=== PATIENT | male | born 1950 | race Caucasian/White ===

== ENCOUNTER 2019-04-19 06:40 | Inpatient (IN) ==
[2019-04-19] MEDS ORDERED: 0.9 % Sodium Chloride 1,000 ML IVC ONE ×2 (07:24→08:56)
[2019-04-19 07:44] LABS: Basophils % 0.2 %; Eosinophils # 0.1 K/mcL (0.0-0.6); Eosinophils % 0.6 %; Hematocrit 30.8 % (37.5-50.1); Hemoglobin 9.4 g/dL (12.9-16.9); Immature Granulocytes % 2.2 % (0-4); Lymphocytes # 1.5 K/mcL (0.6-4.6); Lymphocytes % 11.8 %; Mean Corpuscular HGB Conc 30.5 g/dL (31.6-35.5); Mean Corpuscular Hemoglobin 27.2 pg (28.0-33.3); Mean Platelet Volume 9.1 fL (9.4-12.4); Monocytes # 1.1 K/mcL (0.0-1.3); Monocytes % 8.7 %; Neutrophils # 9.5 K/mcL (1.6-8.9); Nucleated Red Blood Cells 0.2 /100 WBC (0); Platelet Count 476 K/mcL (140-400); Red Blood Count 3.46 M/mcL (4.19-5.50); Red Cell Distribution Width 15.6 % (11.5-14.5); Segmented Neutrophils % 76.5 %; White Blood Count 12.5 K/mcL (4.3-11.1)
[2019-04-19 07:55] LABS: INR 1.7; Prothrombin Time 19.8 Seconds (9.4-12.1)
[2019-04-19 07:58] LABS: Activated Partial Thrombo Time 41.1 Seconds (26.0-36.0)
[2019-04-19 08:07] LABS: Alanine Aminotransferase 10 Units/L (7-52); Albumin 2.5 g/dL (3.5-5.7); Albumin/Globulin Ratio 0.7 (1.1-2.2); Alkaline Phosphatase 80 Units/L (34-104); Aspartate Amino Transferase 10 Units/L (13-39); BUN/Creatinine Ratio 37 (6-26); Bilirubin,Total 0.3 mg/dL (0.3-1.0); Blood Urea Nitrogen 19 mg/dL (8-23); Calcium 8.3 mg/dL (8.6-10.3); Carbon Dioxide 27 mEq/L (23-29); Chloride 105 mEq/L (98-107); Globulin 3.4 g/dL (2.4-3.5); Glucose 115 mg/dL (70-105); Lipase 9 Units/L (11-82); Magnesium 1.8 mg/dL (1.6-2.6); Osmolality,Calculated 289 (280-300); Sodium 138 mEq/L (136-145); Total Protein 5.9 g/dL (6.4-8.9); Troponin I < 0.03 ng/mL (< 0.04); eGFR For African Americans > 60 (> 60); eGFR For Non-African Americans > 60 (> 60)
[2019-04-19] MEDS ORDERED: levoFLOXacin 750 MG/150 ML 750 MG/150 ML BAG IVPB ONE (08:57)
[2019-04-19] MEDS ORDERED: Ondansetron 4 MG/2 ML VIAL IVP PRN (10:38)
[2019-04-19] MEDS ORDERED: Naloxone 0.4 MG/ML INJ IVP PRN ×2 (10:38→11:59)
[2019-04-19] MEDS: Ringers Solution, Lactated 1,000 ML IVC SCH ×2 (11:17→16:23)
[2019-04-19] MEDS ORDERED: Pantoprazole 40 MG in 0.9 % Sodium Chloride Mini Bag 100 ML IVC SCH (11:30)
[2019-04-19] MEDS: Piperacillin/Tazobactam 3.375 GM in 0.9 % Sodium Chloride Mini Bag 100 ML IVPB SCH ×2 (11:45→19:55)
[2019-04-19 12:03] LABS: VBG HCO3 26 mEq/L (21-27); VBG PCO2 58 mmHg (41-51); VBG PH 7.25 pH Units (7.32-7.42); VBG PO2 54 mmHg (25-50)
[2019-04-19] MEDS ORDERED: *HR* Dextrose 50 % in Water (Syg) 50 ML SYRINGE IVP PRN (12:03)
[2019-04-19] MEDS ORDERED: D5% in Water 1,000 ML IVC PRN (12:03)
[2019-04-19] MEDS ORDERED: Dextrose Gel 15 GM/37.5 ML TUBE PO PRN ×2 (12:03)
[2019-04-19] MEDS ORDERED: Potassium Phosphate 44 MEQ in 0.9 % Sodium Chloride 250 ML IVPB PRN (12:08)
[2019-04-19] MEDS ORDERED: *HR* FentaNYL (PF) 100 MCG/2 ML VIAL IVP ONE ×3 (13:30→17:10)
[2019-04-19] MEDS ORDERED: Octreotide 50 MCG/ML INJ IVP ONE (13:39)
[2019-04-19] MEDS ORDERED: 0.9 % Sodium Chloride 500 ML ONE (13:57)
[2019-04-19 14:22] LABS: Hematocrit 20.3 % (37.5-50.1); Hemoglobin 6.2 g/dL (12.9-16.9)
[2019-04-19] MEDS: Octreotide 400 MCG in 0.9 % Sodium Chloride 100 ML IVC SCH (14:28)
[2019-04-19] MEDS: Octreotide 50 MCG/ML INJ IVP ONE ×2 (14:34→14:43)
[2019-04-19 14:37] LABS: Bilirubin,Urine Negative (Negative); Blood,Urine Negative (Negative); Clarity,Urine Cloudy (Clear); Color,Urine Yellow (Yellow); Glucose,Urine (UA) Normal (Normal); Ketones,Urine Trace mg/dL (Negative); Leukocyte Esterase,Urine Moderate (Negative); Nitrite,Urine Negative (Negative); Protein,Urine 30 mg/dL (Neg-Trace); Specific Gravity,Urine 1.026 (1.010-1.025); Urobilinogen,Urine Normal (Normal)
[2019-04-19 14:38] LABS: Bacteria,Urine None Seen per hpf (None-Few); Squamous Epithelial Cell,Urine Many per lpf (None-Few); WBC,Urine 30-50 per hpf (0-3)
[2019-04-19 15:02] LABS: Yeast,Urine Many per hpf (None Seen)
[2019-04-19 15:03] LABS: Calcium Oxalate Crystals,Urine Present; Hyaline Casts,Urine Many per lpf (None-Few); Transitional Epi Cells,Urine Few per hpf (None-Few)
[2019-04-19 15:04] LABS: RBC,Urine 0-3 per hpf (0-3)
[2019-04-19] MEDS ORDERED: Isovue-370 500 ML BOTTLE IVP ONE (15:12)
[2019-04-19] MEDS ORDERED: Calcium Gluconate 1gm/50mL 1 GM/50 ML BAG IVPB ONE (15:23)
[2019-04-19] MEDS ORDERED: Furosemide 20 MG/2 ML VIAL IVP ONE (15:38)
[2019-04-19] MEDS: Pantoprazole 40 MG in 0.9 % Sodium Chloride Mini Bag 100 ML IVC SCH ×2 (16:57→19:55)
[2019-04-19] MEDS ORDERED: *HR* Midazolam HCl 5 MG/5 ML VIAL IVP ONE ×3 (16:59→17:05)
[2019-04-19] MEDS ORDERED: Simethicone 40 MG/0.6 ML MLS IR ONE (16:59)
[2019-04-19] MEDS ORDERED: Tetracaine/Benzocaine/Butamben 1 SPRAY AEROSOL MM ONE (17:54)
[2019-04-19] MEDS: Insulin LISPRO 300 UNITS/3 ML VIAL SQ SCH ×2 (18:41→23:25)
[2019-04-19 21:38] LABS: Hematocrit 31.2 % (37.5-50.1); Hemoglobin 9.8 g/dL (12.9-16.9)
[2019-04-19] MEDS: Sucralfate 1 GM TABLET PO SCH (21:47)
[2019-04-20] MEDS: Pantoprazole 40 MG in 0.9 % Sodium Chloride Mini Bag 100 ML IVC SCH ×5 (00:23→21:13)
[2019-04-20] MEDS: Octreotide 400 MCG in 0.9 % Sodium Chloride 100 ML IVC SCH ×4 (00:24→22:15)
[2019-04-20] MEDS ORDERED: Furosemide 20 MG/2 ML VIAL IVP ONE ×3 (02:11→18:50)
[2019-04-20 03:51] LABS: VBG Ionized Calcium 1.15 mmol/L (1.15-1.35)
[2019-04-20 03:54] LABS: Basophils # 0.1 K/mcL (0.0-0.2); Basophils % 0.6 %; Eosinophils # 0.1 K/mcL (0.0-0.6); Eosinophils % 0.5 %; Hematocrit 30.3 % (37.5-50.1); Hemoglobin 9.4 g/dL (12.9-16.9); Immature Granulocytes % 2.7 % (0-4); Lymphocytes # 1.7 K/mcL (0.6-4.6); Lymphocytes % 14.6 %; Mean Corpuscular Hemoglobin 28.3 pg (28.0-33.3); Mean Corpuscular Volume 91.3 fL (83.0-100.0); Mean Platelet Volume 8.8 fL (9.4-12.4); Monocytes # 1.5 K/mcL (0.0-1.3); Monocytes % 12.4 %; Neutrophils # 8.2 K/mcL (1.6-8.9); Nucleated Red Blood Cells 0.4 /100 WBC (0); Platelet Count 368 K/mcL (140-400); Red Blood Count 3.32 M/mcL (4.19-5.50); Red Cell Distribution Width 15.5 % (11.5-14.5); Segmented Neutrophils % 69.2 %; White Blood Count 11.9 K/mcL (4.3-11.1)
[2019-04-20 03:58] LABS: BUN/Creatinine Ratio 36 (6-26); Blood Urea Nitrogen 20 mg/dL (8-23); Calcium 7.3 mg/dL (8.6-10.3); Carbon Dioxide 28 mEq/L (23-29); Chloride 108 mEq/L (98-107); Glucose 113 mg/dL (70-105); Osmolality,Calculated 295 (280-300); Sodium 141 mEq/L (136-145); eGFR For African Americans > 60 (> 60); eGFR For Non-African Americans > 60 (> 60)
[2019-04-20] MEDS: Piperacillin/Tazobactam 3.375 GM in 0.9 % Sodium Chloride Mini Bag 100 ML IVPB SCH ×3 (04:27→19:18)
[2019-04-20 04:51] LABS: Phosphorous 3.7 mg/dL (2.7-4.5)
[2019-04-20] MEDS: Insulin LISPRO 300 UNITS/3 ML VIAL SQ SCH ×4 (05:32→23:47)
[2019-04-20] MEDS: Sucralfate 1 GM TABLET PO SCH ×4 (06:53→21:15)
[2019-04-20] MEDS: *HR* OxyCODONE Immed Rel 5 MG TABLET PO PRN ×2 (09:29→19:32)
[2019-04-20 10:08] LABS: Hematocrit 28.7 % (37.5-50.1)
[2019-04-20] MEDS ORDERED: Ipratropium/Albuterol Neb 3 ML IH ONE (12:57)
[2019-04-20] MEDS ORDERED: Albuterol 2.5 MG/3 ML NEBULIZER IH PRN (12:57)
[2019-04-20] MEDS: Perflutren Lipid Microsphere 1.3 ML in 0.9 % Sodium Chloride 8.7 ML IVP ONE ×2 (15:25→15:27)
[2019-04-21] MEDS: Insulin LISPRO 300 UNITS/3 ML VIAL SQ SCH ×5 (00:13→22:48)
[2019-04-21] MEDS: Pantoprazole 40 MG in 0.9 % Sodium Chloride Mini Bag 100 ML IVC SCH ×2 (01:24→06:19)
[2019-04-21 03:40] LABS: Basophils # 0.1 K/mcL (0.0-0.2); Basophils % 0.5 %; Eosinophils # 0.7 K/mcL (0.0-0.6); Eosinophils % 5.2 %; Hemoglobin 8.1 g/dL (12.9-16.9); Immature Granulocytes % 1.1 % (0-4); Lymphocytes # 2.2 K/mcL (0.6-4.6); Lymphocytes % 16.7 %; Mean Corpuscular HGB Conc 31.2 g/dL (31.6-35.5); Mean Corpuscular Volume 93.2 fL (83.0-100.0); Mean Platelet Volume 8.6 fL (9.4-12.4); Monocytes # 1.5 K/mcL (0.0-1.3); Monocytes % 11.6 %; Neutrophils # 8.6 K/mcL (1.6-8.9); Nucleated Red Blood Cells 0.2 /100 WBC (0); Platelet Count 355 K/mcL (140-400); Red Blood Count 2.79 M/mcL (4.19-5.50); Segmented Neutrophils % 64.9 %; White Blood Count 13.3 K/mcL (4.3-11.1)
[2019-04-21 03:49] LABS: VBG Ionized Calcium 1.08 mmol/L (1.15-1.35)
[2019-04-21 03:55] LABS: BUN/Creatinine Ratio 25 (6-26); Blood Urea Nitrogen 15 mg/dL (8-23); Calcium 7.4 mg/dL (8.6-10.3); Carbon Dioxide 35 mEq/L (23-29); Chloride 103 mEq/L (98-107); Glucose 70 mg/dL (70-105); Osmolality,Calculated 289 (280-300); Phosphorous 2.6 mg/dL (2.7-4.5); Potassium 3.6 mEq/L (3.5-5.1); Sodium 140 mEq/L (136-145); eGFR For African Americans > 60 (> 60); eGFR For Non-African Americans > 60 (> 60)
[2019-04-21] MEDS: Piperacillin/Tazobactam 3.375 GM in 0.9 % Sodium Chloride Mini Bag 100 ML IVPB SCH ×3 (04:03→19:55)
[2019-04-21] MEDS: Calcium Gluconate 1gm/50mL 1 GM/50 ML BAG IVPB PRN ×2 (04:44→18:22)
[2019-04-21 05:13] LABS: Magnesium 1.6 mg/dL (1.6-2.6)
[2019-04-21] MEDS: Octreotide 400 MCG in 0.9 % Sodium Chloride 100 ML IVC SCH ×2 (06:18→15:24)
[2019-04-21] MEDS: Sucralfate 1 GM TABLET PO SCH ×4 (09:26→19:56)
[2019-04-21] MEDS: Furosemide 20 MG/2 ML VIAL IVP SCH ×2 (09:26→19:55)
[2019-04-21 11:03] LABS: Calcium 7.7 mg/dL (8.6-10.3); Potassium 4.2 mEq/L (3.5-5.1)
[2019-04-21 12:15] LABS: ABG Base Excess 16 mEq/L (-2 to 3); ABG HCO3 44 mEq/L (21-27); ABG Oxygen Saturation 95 % (95-98); ABG PCO2 77 mmHg (35-45); ABG PH 7.37 pH Units (7.32-7.45); ABG PO2 85 mmHg (85-104); ABG TCO2 47 mEq/L (20-26)
[2019-04-21 12:58] LABS: Basophils % 0.3 %; Eosinophils # 0.4 K/mcL (0.0-0.6); Eosinophils % 3.6 %; Hematocrit 28.9 % (37.5-50.1); Hemoglobin 8.8 g/dL (12.9-16.9); Lymphocytes # 1.4 K/mcL (0.6-4.6); Lymphocytes % 12.3 %; Mean Corpuscular HGB Conc 30.4 g/dL (31.6-35.5); Mean Corpuscular Hemoglobin 28.7 pg (28.0-33.3); Mean Corpuscular Volume 94.1 fL (83.0-100.0); Mean Platelet Volume 8.4 fL (9.4-12.4); Monocytes # 1.1 K/mcL (0.0-1.3); Monocytes % 9.1 %; Neutrophils # 8.5 K/mcL (1.6-8.9); Nucleated Red Blood Cells 0.3 /100 WBC (0); Platelet Count 413 K/mcL (140-400); Red Blood Count 3.07 M/mcL (4.19-5.50); Red Cell Distribution Width 16.1 % (11.5-14.5); Segmented Neutrophils % 73.7 %; White Blood Count 11.5 K/mcL (4.3-11.1)
[2019-04-21 12:59] LABS: VBG Ionized Calcium 1.07 mmol/L (1.15-1.35)
[2019-04-21 13:10] LABS: BUN/Creatinine Ratio 23 (6-26); Blood Urea Nitrogen 12 mg/dL (8-23); Calcium 7.7 mg/dL (8.6-10.3); Carbon Dioxide 37 mEq/L (23-29); Chloride 100 mEq/L (98-107); Glucose 127 mg/dL (70-105); Osmolality,Calculated 291 (280-300); Potassium 4.1 mEq/L (3.5-5.1); Sodium 140 mEq/L (136-145); eGFR For African Americans > 60 (> 60); eGFR For Non-African Americans > 60 (> 60)
[2019-04-21 15:18] LABS: ABG Base Excess 17 mEq/L (-2 to 3); ABG HCO3 44 mEq/L (21-27); ABG Oxygen Saturation 98 % (95-98); ABG PCO2 72 mmHg (35-45); ABG PH 7.39 pH Units (7.32-7.45); ABG PO2 104 mmHg (85-104); ABG TCO2 46 mEq/L (20-26); Blood Gas Modality ST; Blood Gas Pressure Support 12 cm H2O
[2019-04-21] MEDS: Pantoprazole 40 MG VIAL IVP SCH (17:48)
[2019-04-21 23:27] LABS: VBG Ionized Calcium 1.11 mmol/L (1.15-1.35)
[2019-04-21 23:33] LABS: BUN/Creatinine Ratio 18 (6-26); Blood Urea Nitrogen 10 mg/dL (8-23); Calcium 7.9 mg/dL (8.6-10.3); Carbon Dioxide 37 mEq/L (23-29); Chloride 98 mEq/L (98-107); Glucose 96 mg/dL (70-105); Magnesium 1.9 mg/dL (1.6-2.6); Osmolality,Calculated 289 (280-300); Phosphorous 2.9 mg/dL (2.7-4.5); Potassium 4.3 mEq/L (3.5-5.1); Sodium 140 mEq/L (136-145); eGFR For African Americans > 60 (> 60); eGFR For Non-African Americans > 60 (> 60)
[2019-04-22] MEDS: Octreotide 400 MCG in 0.9 % Sodium Chloride 100 ML IVC SCH ×2 (00:09→09:09)
[2019-04-22 03:24] LABS: Basophils # 0.1 K/mcL (0.0-0.2); Basophils % 0.4 %; Eosinophils # 0.3 K/mcL (0.0-0.6); Eosinophils % 2.3 %; Hematocrit 26.5 % (37.5-50.1); Hemoglobin 8.2 g/dL (12.9-16.9); Immature Granulocytes % 0.7 % (0-4); Lymphocytes # 1.8 K/mcL (0.6-4.6); Lymphocytes % 13.1 %; Mean Corpuscular HGB Conc 30.9 g/dL (31.6-35.5); Mean Corpuscular Hemoglobin 29.3 pg (28.0-33.3); Mean Corpuscular Volume 94.6 fL (83.0-100.0); Mean Platelet Volume 8.8 fL (9.4-12.4); Monocytes # 1.2 K/mcL (0.0-1.3); Neutrophils # 10.1 K/mcL (1.6-8.9); Platelet Count 415 K/mcL (140-400); Red Cell Distribution Width 16.1 % (11.5-14.5); Segmented Neutrophils % 74.5 %; White Blood Count 13.6 K/mcL (4.3-11.1)
[2019-04-22 03:38] LABS: Alanine Aminotransferase 18 Units/L (7-52); Albumin 2.5 g/dL (3.5-5.7); Albumin/Globulin Ratio 0.8 (1.1-2.2); Alkaline Phosphatase 66 Units/L (34-104); Aspartate Amino Transferase 47 Units/L (13-39); BUN/Creatinine Ratio 17 (6-26); Bilirubin,Direct 0.2 mg/dL (0.0-0.2); Bilirubin,Indirect 0.1 mg/dL (0.0-1.0); Bilirubin,Total 0.3 mg/dL (0.3-1.0); Blood Urea Nitrogen 10 mg/dL (8-23); Calcium 7.9 mg/dL (8.6-10.3); Carbon Dioxide 37 mEq/L (23-29); Chloride 97 mEq/L (98-107); Globulin 3.1 g/dL (2.4-3.5); Glucose 96 mg/dL (70-105); Magnesium 2.6 mg/dL (1.6-2.6); Osmolality,Calculated 291 (280-300); Phosphorous 4.2 mg/dL (2.7-4.5); Sodium 141 mEq/L (136-145); Total Protein 5.6 g/dL (6.4-8.9); eGFR For African Americans > 60 (> 60); eGFR For Non-African Americans > 60 (> 60)
[2019-04-22 03:40] LABS: INR 2.9; Prothrombin Time 32.9 Seconds (9.4-12.1)
[2019-04-22] MEDS: Piperacillin/Tazobactam 3.375 GM in 0.9 % Sodium Chloride Mini Bag 100 ML IVPB SCH ×3 (04:06→20:17)
[2019-04-22 04:12] LABS: ABG Base Excess 12 mEq/L (-2 to 3); ABG HCO3 39 mEq/L (21-27); ABG Oxygen Saturation 89 % (95-98); ABG PCO2 67 mmHg (35-45); ABG PH 7.38 pH Units (7.32-7.45); ABG PO2 61 mmHg (85-104); ABG TCO2 41 mEq/L (20-26)
[2019-04-22] MEDS: Insulin LISPRO 300 UNITS/3 ML VIAL SQ SCH ×2 (05:26→20:18)
[2019-04-22] MEDS: Pantoprazole 40 MG VIAL IVP SCH ×2 (05:33→17:29)
[2019-04-22] MEDS: Furosemide 20 MG/2 ML VIAL IVP SCH ×2 (08:25→20:18)
[2019-04-22] MEDS: Sucralfate 1 GM TABLET PO SCH ×4 (08:25→20:18)
[2019-04-22 08:49] LABS: Prothrombin Time 34.1 Seconds (9.4-12.1)
[2019-04-22] MEDS ORDERED: diazePAM 2 MG TABLET PO PRN ×2 (11:35→18:45)
[2019-04-22] MEDS ORDERED: Venlafaxine XR (24 HR) 150 MG CAP.ER.24H PO SCH (11:45)
[2019-04-22] MEDS ORDERED: 0.9 % Sodium Chloride 250 ML ONE ×2 (12:26→17:19)
[2019-04-22] MEDS ORDERED: Insulin LISPRO 300 UNITS/3 ML VIAL SQ SCH (16:30)
[2019-04-22] MEDS ORDERED: *HR* OxyCODONE Immed Rel 5 MG TABLET PO PRN (18:45)
[2019-04-22] MEDS ORDERED: Naloxone 0.4 MG/ML INJ IVP PRN (18:45)
[2019-04-22] MEDS ORDERED: Ondansetron 4 MG/2 ML VIAL IVP PRN (18:45)
[2019-04-22] MEDS ORDERED: D5% in Water 1,000 ML IVC PRN (18:45)
[2019-04-22] MEDS ORDERED: Calcium Gluconate 1gm/50mL 1 GM/50 ML BAG IVPB PRN (18:45)
[2019-04-22] MEDS ORDERED: Albuterol 2.5 MG/3 ML NEBULIZER IH PRN (18:45)
[2019-04-22] MEDS ORDERED: Potassium Phosphate 44 MEQ in 0.9 % Sodium Chloride 250 ML IVPB PRN (18:45)
[2019-04-22] MEDS ORDERED: Dextrose Gel 15 GM/37.5 ML TUBE PO PRN ×2 (18:45)
[2019-04-22] MEDS ORDERED: *HR* Dextrose 50 % in Water (Syg) 50 ML SYRINGE IVP PRN (18:45)
[2019-04-22 20:37] LABS: Hematocrit 24.9 % (37.5-50.1); Hemoglobin 7.5 g/dL (12.9-16.9)
[2019-04-22 21:04] LABS: Albumin 2.8 g/dL (3.5-5.7); Albumin/Globulin Ratio 0.9 (1.1-2.2); Bilirubin,Direct 0.1 mg/dL (0.0-0.2); Bilirubin,Indirect 0.3 mg/dL (0.0-1.0); Bilirubin,Total 0.4 mg/dL (0.3-1.0); Globulin 3.2 g/dL (2.4-3.5)
[2019-04-22 21:51] LABS: INR 1.3; Prothrombin Time 14.4 Seconds (9.4-12.1)
[2019-04-22 21:53] LABS: Activated Partial Thrombo Time 40.1 Seconds (26.0-36.0)
[2019-04-23] MEDS: Piperacillin/Tazobactam 3.375 GM in 0.9 % Sodium Chloride Mini Bag 100 ML IVPB SCH ×3 (03:58→20:13)
[2019-04-23] MEDS: Pantoprazole 40 MG VIAL IVP SCH ×2 (04:43→19:00)
[2019-04-23 04:44] LABS: ABG Base Excess 20 mEq/L (-2 to 3); ABG HCO3 48 mEq/L (21-27); ABG Oxygen Saturation 93 % (95-98); ABG PCO2 81 mmHg (35-45); ABG PH 7.38 pH Units (7.32-7.45); ABG PO2 72 mmHg (85-104); ABG TCO2 > 50 mEq/L (20-26)
[2019-04-23] MEDS ORDERED: Benzonatate 100 MG CAPSULE PO PRN (04:55)
[2019-04-23 05:15] LABS: Basophils % 0.4 %; Eosinophils # 0.3 K/mcL (0.0-0.6); Eosinophils % 2.8 %; Hematocrit 24.7 % (37.5-50.1); Hemoglobin 7.6 g/dL (12.9-16.9); Immature Granulocytes % 0.6 % (0-4); Lymphocytes # 1.1 K/mcL (0.6-4.6); Lymphocytes % 10.6 %; Mean Corpuscular HGB Conc 30.8 g/dL (31.6-35.5); Mean Corpuscular Hemoglobin 29.3 pg (28.0-33.3); Mean Corpuscular Volume 95.4 fL (83.0-100.0); Mean Platelet Volume 8.8 fL (9.4-12.4); Monocytes % 9.1 %; Neutrophils # 8.1 K/mcL (1.6-8.9); Platelet Count 453 K/mcL (140-400); Red Blood Count 2.59 M/mcL (4.19-5.50); Red Cell Distribution Width 15.9 % (11.5-14.5); Segmented Neutrophils % 76.5 %; White Blood Count 10.6 K/mcL (4.3-11.1)
[2019-04-23 05:32] LABS: INR 1.1; Prothrombin Time 12.5 Seconds (9.4-12.1)
[2019-04-23 05:35] LABS: Activated Partial Thrombo Time 36.5 Seconds (26.0-36.0)
[2019-04-23 05:41] LABS: Phosphorous 2.2 mg/dL (2.7-4.5)
[2019-04-23 05:44] LABS: Alanine Aminotransferase 17 Units/L (7-52); Albumin 2.9 g/dL (3.5-5.7); Albumin/Globulin Ratio 0.9 (1.1-2.2); Alkaline Phosphatase 67 Units/L (34-104); Aspartate Amino Transferase 27 Units/L (13-39); BUN/Creatinine Ratio 11 (6-26); Bilirubin,Total 0.4 mg/dL (0.3-1.0); Blood Urea Nitrogen 7 mg/dL (8-23); Calcium 8.1 mg/dL (8.6-10.3); Carbon Dioxide 45 mEq/L (23-29); Chloride 94 mEq/L (98-107); Globulin 3.3 g/dL (2.4-3.5); Glucose 154 mg/dL (70-105); Osmolality,Calculated 293 (280-300); Potassium 3.6 mEq/L (3.5-5.1); Sodium 141 mEq/L (136-145); Total Protein 6.2 g/dL (6.4-8.9); eGFR For African Americans > 60 (> 60); eGFR For Non-African Americans > 60 (> 60)
[2019-04-23] MEDS: Sucralfate 1 GM TABLET PO SCH ×4 (08:00→20:12)
[2019-04-23] MEDS: Furosemide 20 MG/2 ML VIAL IVP SCH ×2 (08:07→20:12)
[2019-04-23] MEDS: Insulin LISPRO 300 UNITS/3 ML VIAL SQ SCH ×4 (08:08→21:30)
[2019-04-23] MEDS: Venlafaxine XR (24 HR) 150 MG CAP.ER.24H PO SCH (09:00)
[2019-04-23 16:13] LABS: ABG Base Excess 24 mEq/L (-2 to 3); ABG HCO3 52 mEq/L (21-27); ABG Oxygen Saturation 100 % (95-98); ABG PCO2 82 mmHg (35-45); ABG PH 7.41 pH Units (7.32-7.45); ABG PO2 179 mmHg (85-104); ABG TCO2 > 50 mEq/L (20-26)
[2019-04-23 19:52] LABS: Hematocrit 26.2 % (37.5-50.1); Hemoglobin 7.8 g/dL (12.9-16.9)
[2019-04-24] MEDS: Insulin LISPRO 300 UNITS/3 ML VIAL SQ SCH ×4 (03:30→23:10)
[2019-04-24] MEDS: Piperacillin/Tazobactam 3.375 GM in 0.9 % Sodium Chloride Mini Bag 100 ML IVPB SCH ×3 (03:37→21:24)
[2019-04-24] MEDS: Pantoprazole 40 MG VIAL IVP SCH (05:13)
[2019-04-24] MEDS ORDERED: calcitrioL 0.25 MCG CAPSULE PO SCH (09:00)
[2019-04-24] MEDS: Cholecalciferol (D-3) 1,000 UNIT (25MCG) TABLET PO SCH (10:11)
[2019-04-24] MEDS: Sucralfate 1 GM TABLET PO SCH ×4 (10:11→21:21)
[2019-04-24] MEDS: Venlafaxine XR (24 HR) 150 MG CAP.ER.24H PO SCH (10:11)
[2019-04-24] MEDS: polyethylene glycoL 3350 17 GM POWD.PACK PO SCH (10:28)
[2019-04-24] MEDS: Sennosides/Docusate Sodium TABLET PO SCH ×2 (10:28→21:21)
[2019-04-24] MEDS: Furosemide 20 MG/2 ML VIAL IVP SCH ×2 (10:28→21:21)
[2019-04-25 01:52] LABS: Basophils # 0.1 K/mcL (0.0-0.2); Basophils % 0.5 %; Eosinophils # 0.3 K/mcL (0.0-0.6); Eosinophils % 2.4 %; Hematocrit 28.5 % (37.5-50.1); Hemoglobin 8.6 g/dL (12.9-16.9); Immature Granulocytes % 0.5 % (0-4); Lymphocytes # 1.5 K/mcL (0.6-4.6); Lymphocytes % 12.1 %; Mean Corpuscular HGB Conc 30.2 g/dL (31.6-35.5); Mean Platelet Volume 8.5 fL (9.4-12.4); Monocytes # 1.4 K/mcL (0.0-1.3); Monocytes % 11.4 %; Neutrophils # 8.9 K/mcL (1.6-8.9); Platelet Count 574 K/mcL (140-400); Red Blood Count 2.97 M/mcL (4.19-5.50); Red Cell Distribution Width 15.8 % (11.5-14.5); Segmented Neutrophils % 73.1 %; White Blood Count 12.1 K/mcL (4.3-11.1)
[2019-04-25 01:57] LABS: VBG HCO3 48 mEq/L (21-27); VBG PCO2 65 mmHg (41-51); VBG PH 7.48 pH Units (7.32-7.42); VBG PO2 120 mmHg (25-50)
[2019-04-25 02:15] LABS: BUN/Creatinine Ratio 8 (6-26); Blood Urea Nitrogen 5 mg/dL (8-23); Calcium 8.6 mg/dL (8.6-10.3); Carbon Dioxide > 45 mEq/L (23-29); Chloride 90 mEq/L (98-107); Glucose 81 mg/dL (70-105); Magnesium 1.9 mg/dL (1.6-2.6); Osmolality,Calculated 296 (280-300); Sodium 145 mEq/L (136-145); eGFR For African Americans > 60 (> 60); eGFR For Non-African Americans > 60 (> 60)
[2019-04-25] MEDS ORDERED: *HR* Metoprolol 5 MG/5 ML VIAL IVP ONE (02:23)
[2019-04-25] MEDS: *HR* Metoprolol 5 MG/5 ML VIAL IVP ONE ×2 (02:29→05:29)
[2019-04-25] MEDS ORDERED: DilTIAZem 50 MG in 0.9 % Sodium Chloride 40 ML IVC SCH (03:00)
[2019-04-25] MEDS ORDERED: Albumin 25% 25gram/100mL 25 GM/100 ML IV.SOLN IVPB ONE (03:56)
[2019-04-25] MEDS ORDERED: 0.9 % Sodium Chloride 1,000 ML ONE (04:16)
[2019-04-25] MEDS: Piperacillin/Tazobactam 3.375 GM in 0.9 % Sodium Chloride Mini Bag 100 ML IVPB SCH ×3 (04:28→20:12)
[2019-04-25] MEDS: Insulin LISPRO 300 UNITS/3 ML VIAL SQ SCH ×3 (06:01→23:10)
[2019-04-25] MEDS: Sennosides/Docusate Sodium TABLET PO SCH ×2 (08:17→20:12)
[2019-04-25] MEDS: Sucralfate 1 GM TABLET PO SCH ×4 (08:17→23:10)
[2019-04-25] MEDS: Cholecalciferol (D-3) 1,000 UNIT (25MCG) TABLET PO SCH (08:17)
[2019-04-25] MEDS: Furosemide 20 MG/2 ML VIAL IVP SCH ×2 (08:18→20:12)
[2019-04-25] MEDS: polyethylene glycoL 3350 17 GM POWD.PACK PO SCH (08:18)
[2019-04-25] MEDS: Venlafaxine XR (24 HR) 150 MG CAP.ER.24H PO SCH (08:19)
[2019-04-25] MEDS ORDERED: Potassium Chloride 40 MEQ, Lidocaine 1% 2 ML in 0.9 % Sodium Chloride 500 ML IVPB ONE (08:56)
[2019-04-25] MEDS: Ipratropium/Albuterol Neb 3 ML IH PRN (09:50)
[2019-04-25] MEDS ORDERED: *HR* Digoxin 0.5 MG/2 ML AMPUL IVP ONE (12:00)
[2019-04-25 15:58] LABS: BUN/Creatinine Ratio 9 (6-26); Blood Urea Nitrogen 7 mg/dL (8-23); Calcium 8.5 mg/dL (8.6-10.3); Carbon Dioxide 44 mEq/L (23-29); Chloride 96 mEq/L (98-107); Glucose 112 mg/dL (70-105); Osmolality,Calculated 299 (280-300); Potassium 4.4 mEq/L (3.5-5.1); Sodium 145 mEq/L (136-145); eGFR For African Americans > 60 (> 60); eGFR For Non-African Americans > 60 (> 60)
[2019-04-25] MEDS: *HR* Digoxin 0.5 MG/2 ML AMPUL IVP SCH (17:47)
[2019-04-25 18:19] LABS: BUN/Creatinine Ratio 9 (6-26); Blood Urea Nitrogen 7 mg/dL (8-23); Calcium 8.7 mg/dL (8.6-10.3); Carbon Dioxide 43 mEq/L (23-29); Chloride 96 mEq/L (98-107); Glucose 86 mg/dL (70-105); Magnesium 1.9 mg/dL (1.6-2.6); Osmolality,Calculated 299 (280-300); Phosphorous 1.7 mg/dL (2.7-4.5); Potassium 4.3 mEq/L (3.5-5.1); Sodium 146 mEq/L (136-145); eGFR For African Americans > 60 (> 60); eGFR For Non-African Americans > 60 (> 60)
[2019-04-25] MEDS ORDERED: Nitroglycerin 0.4 MG TAB.SUBL SL PRN (18:27)
[2019-04-25] MEDS ORDERED: Aspirin 81 MG TAB.CHEW PO ONE (18:27)
[2019-04-26 00:29] LABS: Basophils # 0.1 K/mcL (0.0-0.2); Basophils % 0.5 %; Eosinophils # 0.2 K/mcL (0.0-0.6); Eosinophils % 2.1 %; Hematocrit 31.3 % (37.5-50.1); Hemoglobin 9.2 g/dL (12.9-16.9); Immature Granulocytes % 0.5 % (0-4); Lymphocytes # 1.3 K/mcL (0.6-4.6); Lymphocytes % 13.4 %; Mean Corpuscular HGB Conc 29.4 g/dL (31.6-35.5); Mean Corpuscular Hemoglobin 28.4 pg (28.0-33.3); Mean Corpuscular Volume 96.6 fL (83.0-100.0); Mean Platelet Volume 8.8 fL (9.4-12.4); Monocytes # 1.2 K/mcL (0.0-1.3); Monocytes % 11.9 %; Platelet Count 656 K/mcL (140-400); Red Blood Count 3.24 M/mcL (4.19-5.50); Red Cell Distribution Width 16.1 % (11.5-14.5); Segmented Neutrophils % 71.6 %; White Blood Count 9.7 K/mcL (4.3-11.1)
[2019-04-26] MEDS: *HR* Digoxin 0.5 MG/2 ML AMPUL IVP SCH (00:43)
[2019-04-26 01:26] LABS: BUN/Creatinine Ratio 9 (6-26); Blood Urea Nitrogen 7 mg/dL (8-23); Carbon Dioxide 37 mEq/L (23-29); Chloride 94 mEq/L (98-107); Glucose 82 mg/dL (70-105); Magnesium 2.6 mg/dL (1.6-2.6); Osmolality,Calculated 293 (280-300); Potassium 3.7 mEq/L (3.5-5.1); Sodium 143 mEq/L (136-145); eGFR For African Americans > 60 (> 60); eGFR For Non-African Americans > 60 (> 60)
[2019-04-26 01:40] LABS: Digoxin 2.2 ng/mL (0.8-2.0)
[2019-04-26] MEDS: Piperacillin/Tazobactam 3.375 GM in 0.9 % Sodium Chloride Mini Bag 100 ML IVPB SCH ×3 (03:28→19:59)
[2019-04-26] MEDS: Insulin LISPRO 300 UNITS/3 ML VIAL SQ SCH ×2 (08:06→11:36)
[2019-04-26] MEDS: Sucralfate 1 GM TABLET PO SCH ×4 (08:06→21:45)
[2019-04-26] MEDS: Furosemide 20 MG/2 ML VIAL IVP SCH ×2 (08:07→19:59)
[2019-04-26] MEDS: *HR* Digoxin 0.125 MG TABLET PO SCH (08:07)
[2019-04-26] MEDS: Venlafaxine XR (24 HR) 150 MG CAP.ER.24H PO SCH (08:07)
[2019-04-26] MEDS: polyethylene glycoL 3350 17 GM POWD.PACK PO SCH (08:22)
[2019-04-26] MEDS: Sennosides/Docusate Sodium TABLET PO SCH (08:22)
[2019-04-26] MEDS: Cholecalciferol (D-3) 1,000 UNIT (25MCG) TABLET PO SCH (08:23)
[2019-04-26] MEDS ORDERED: Aminoglycoside Consult 1 EACH MC ONE (09:22)
[2019-04-26] MEDS ORDERED: D5% in Water 1,000 ML IVC PRN (16:25)
[2019-04-26] MEDS ORDERED: Dextrose Gel 15 GM/37.5 ML TUBE PO PRN ×2 (16:25)
[2019-04-26] MEDS ORDERED: *HR* Dextrose 50 % in Water (Syg) 50 ML SYRINGE IVP PRN (16:25)
[2019-04-27] MEDS: Piperacillin/Tazobactam 3.375 GM in 0.9 % Sodium Chloride Mini Bag 100 ML IVPB SCH ×3 (03:16→20:30)
[2019-04-27 03:19] LABS: Basophils # 0.1 K/mcL (0.0-0.2); Basophils % 0.6 %; Eosinophils # 0.4 K/mcL (0.0-0.6); Eosinophils % 2.8 %; Hematocrit 30.6 % (37.5-50.1); Hemoglobin 9.2 g/dL (12.9-16.9); Immature Granulocytes % 0.6 % (0-4); Lymphocytes # 1.9 K/mcL (0.6-4.6); Lymphocytes % 13.1 %; Mean Corpuscular HGB Conc 30.1 g/dL (31.6-35.5); Mean Corpuscular Hemoglobin 28.8 pg (28.0-33.3); Mean Corpuscular Volume 95.6 fL (83.0-100.0); Mean Platelet Volume 8.9 fL (9.4-12.4); Monocytes # 1.8 K/mcL (0.0-1.3); Monocytes % 12.7 %; Platelet Count 625 K/mcL (140-400); Red Cell Distribution Width 16.1 % (11.5-14.5); Segmented Neutrophils % 70.2 %; White Blood Count 14.3 K/mcL (4.3-11.1)
[2019-04-27 03:46] LABS: BUN/Creatinine Ratio 10 (6-26); Blood Urea Nitrogen 9 mg/dL (8-23); Calcium 8.5 mg/dL (8.6-10.3); Carbon Dioxide 40 mEq/L (23-29); Chloride 96 mEq/L (98-107); Glucose 89 mg/dL (70-105); Magnesium 2.1 mg/dL (1.6-2.6); Osmolality,Calculated 294 (280-300); Potassium 4.2 mEq/L (3.5-5.1); Sodium 143 mEq/L (136-145); eGFR For African Americans > 60 (> 60); eGFR For Non-African Americans > 60 (> 60)
[2019-04-27] MEDS: Venlafaxine XR (24 HR) 150 MG CAP.ER.24H PO SCH (08:32)
[2019-04-27] MEDS: polyethylene glycoL 3350 17 GM POWD.PACK PO SCH (08:32)
[2019-04-27] MEDS: Sucralfate 1 GM TABLET PO SCH ×4 (08:32→20:31)
[2019-04-27] MEDS: *HR* Digoxin 0.125 MG TABLET PO SCH ×2 (08:32→18:07)
[2019-04-27] MEDS: Cholecalciferol (D-3) 1,000 UNIT (25MCG) TABLET PO SCH (08:33)
[2019-04-27] MEDS ORDERED: *HR* Metoprolol 5 MG/5 ML VIAL IVP ONE (18:01)
[2019-04-27] MEDS ORDERED: Metoprolol XL (24 HR) Succ 25 MG TAB.ER.24H PO SCH (18:02)
[2019-04-28] MEDS: Piperacillin/Tazobactam 3.375 GM in 0.9 % Sodium Chloride Mini Bag 100 ML IVPB SCH ×3 (04:09→20:06)
[2019-04-28 06:50] LABS: Basophils # 0.1 K/mcL (0.0-0.2); Basophils % 0.9 %; Eosinophils # 0.2 K/mcL (0.0-0.6); Eosinophils % 1.7 %; Hematocrit 26.4 % (37.5-50.1); Hemoglobin 7.9 g/dL (12.9-16.9); Immature Granulocytes % 0.3 % (0-4); Lymphocytes # 1.4 K/mcL (0.6-4.6); Lymphocytes % 15.8 %; Mean Corpuscular HGB Conc 29.9 g/dL (31.6-35.5); Mean Corpuscular Hemoglobin 28.7 pg (28.0-33.3); Mean Platelet Volume 8.8 fL (9.4-12.4); Monocytes # 1.2 K/mcL (0.0-1.3); Monocytes % 13.9 %; Platelet Count 603 K/mcL (140-400); Red Blood Count 2.75 M/mcL (4.19-5.50); Red Cell Distribution Width 16.3 % (11.5-14.5); Segmented Neutrophils % 67.4 %; White Blood Count 8.9 K/mcL (4.3-11.1)
[2019-04-28 06:51] LABS: VBG HCO3 40 mEq/L (21-27); VBG PCO2 61 mmHg (41-51); VBG PH 7.43 pH Units (7.32-7.42); VBG PO2 104 mmHg (25-50)
[2019-04-28 07:15] LABS: BUN/Creatinine Ratio 12 (6-26); Blood Urea Nitrogen 9 mg/dL (8-23); Calcium 8.5 mg/dL (8.6-10.3); Carbon Dioxide 39 mEq/L (23-29); Chloride 97 mEq/L (98-107); Glucose 98 mg/dL (70-105); Magnesium 2.1 mg/dL (1.6-2.6); Osmolality,Calculated 293 (280-300); Potassium 3.1 mEq/L (3.5-5.1); Sodium 142 mEq/L (136-145); eGFR For African Americans > 60 (> 60); eGFR For Non-African Americans > 60 (> 60)
[2019-04-28] MEDS: Sucralfate 1 GM TABLET PO SCH ×4 (08:06→20:07)
[2019-04-28] MEDS: Cholecalciferol (D-3) 1,000 UNIT (25MCG) TABLET PO SCH (08:07)
[2019-04-28] MEDS: Furosemide 40 MG TABLET PO SCH (08:08)
[2019-04-28] MEDS: Venlafaxine XR (24 HR) 150 MG CAP.ER.24H PO SCH (08:08)
[2019-04-28] MEDS: *HR* Digoxin 0.125 MG TABLET PO SCH (08:08)
[2019-04-28] MEDS: polyethylene glycoL 3350 17 GM POWD.PACK PO SCH (08:10)
[2019-04-29] MEDS: Piperacillin/Tazobactam 3.375 GM in 0.9 % Sodium Chloride Mini Bag 100 ML IVPB SCH ×3 (04:00→20:07)
[2019-04-29 06:00] LABS: Basophils # 0.1 K/mcL (0.0-0.2); Eosinophils # 0.3 K/mcL (0.0-0.6); Eosinophils % 2.4 %; Hematocrit 30.5 % (37.5-50.1); Hemoglobin 8.9 g/dL (12.9-16.9); Immature Granulocytes % 0.3 % (0-4); Lymphocytes # 1.7 K/mcL (0.6-4.6); Lymphocytes % 16.8 %; Mean Corpuscular HGB Conc 29.2 g/dL (31.6-35.5); Mean Corpuscular Hemoglobin 28.3 pg (28.0-33.3); Mean Corpuscular Volume 96.8 fL (83.0-100.0); Mean Platelet Volume 8.9 fL (9.4-12.4); Monocytes # 1.5 K/mcL (0.0-1.3); Monocytes % 14.8 %; Neutrophils # 6.7 K/mcL (1.6-8.9); Platelet Count 671 K/mcL (140-400); Red Blood Count 3.15 M/mcL (4.19-5.50); Red Cell Distribution Width 16.1 % (11.5-14.5); Segmented Neutrophils % 64.7 %; White Blood Count 10.3 K/mcL (4.3-11.1)
[2019-04-29 06:16] LABS: VBG HCO3 36 mEq/L (21-27); VBG PCO2 61 mmHg (41-51); VBG PH 7.37 pH Units (7.32-7.42); VBG PO2 139 mmHg (25-50)
[2019-04-29 06:20] LABS: % Iron Saturation 12 % (20-55); BUN/Creatinine Ratio 11 (6-26); Blood Urea Nitrogen 9 mg/dL (8-23); Calcium 8.7 mg/dL (8.6-10.3); Carbon Dioxide 37 mEq/L (23-29); Chloride 101 mEq/L (98-107); Glucose 88 mg/dL (70-105); Iron 25 mcg/dL (65-175); Osmolality,Calculated 292 (280-300); Potassium 4.3 mEq/L (3.5-5.1); Sodium 142 mEq/L (136-145); Transferrin 143 mg/dL (203-362); eGFR For African Americans > 60 (> 60); eGFR For Non-African Americans > 60 (> 60)
[2019-04-29 06:38] LABS: Ferritin 54 ng/mL (20-250)
[2019-04-29 06:44] LABS: Folate 11.3 ng/mL (3.0-16.0)
[2019-04-29 06:45] LABS: Vitamin B12 > 1500 pg/mL (250-1100)
[2019-04-29] MEDS: Cholecalciferol (D-3) 1,000 UNIT (25MCG) TABLET PO SCH (08:32)
[2019-04-29] MEDS: *HR* Digoxin 0.125 MG TABLET PO SCH (08:33)
[2019-04-29] MEDS: Sucralfate 1 GM TABLET PO SCH ×4 (08:33→19:59)
[2019-04-29] MEDS: Furosemide 40 MG TABLET PO SCH (08:33)
[2019-04-29] MEDS: Venlafaxine XR (24 HR) 150 MG CAP.ER.24H PO SCH (08:33)
[2019-04-29] MEDS: polyethylene glycoL 3350 17 GM POWD.PACK PO SCH (08:39)
[2019-04-29] MEDS ORDERED: Iron Sucrose Complex 250 MG in 0.9 % Sodium Chloride 250 ML IVPB SCH (09:00)
[2019-04-29] MEDS: Ipratropium/Albuterol Neb 3 ML IH PRN (16:32)
[2019-04-30 03:30] LABS: Basophils # 0.1 K/mcL (0.0-0.2); Basophils % 0.9 %; Eosinophils # 0.3 K/mcL (0.0-0.6); Eosinophils % 2.7 %; Hematocrit 27.7 % (37.5-50.1); Hemoglobin 8.2 g/dL (12.9-16.9); Immature Granulocytes % 0.4 % (0-4); Lymphocytes # 1.5 K/mcL (0.6-4.6); Lymphocytes % 15.4 %; Mean Corpuscular HGB Conc 29.6 g/dL (31.6-35.5); Mean Corpuscular Hemoglobin 28.3 pg (28.0-33.3); Mean Corpuscular Volume 95.5 fL (83.0-100.0); Mean Platelet Volume 9.1 fL (9.4-12.4); Monocytes # 1.4 K/mcL (0.0-1.3); Monocytes % 14.1 %; Neutrophils # 6.4 K/mcL (1.6-8.9); Platelet Count 647 K/mcL (140-400); Red Cell Distribution Width 15.9 % (11.5-14.5); Segmented Neutrophils % 66.5 %; White Blood Count 9.7 K/mcL (4.3-11.1)
[2019-04-30 03:50] LABS: BUN/Creatinine Ratio 12 (6-26); Blood Urea Nitrogen 8 mg/dL (8-23); Calcium 8.2 mg/dL (8.6-10.3); Carbon Dioxide 37 mEq/L (23-29); Chloride 98 mEq/L (98-107); Glucose 80 mg/dL (70-105); Magnesium 1.7 mg/dL (1.6-2.6); Osmolality,Calculated 285 (280-300); Potassium 3.6 mEq/L (3.5-5.1); Sodium 139 mEq/L (136-145); eGFR For African Americans > 60 (> 60); eGFR For Non-African Americans > 60 (> 60)
[2019-04-30] MEDS: Piperacillin/Tazobactam 3.375 GM in 0.9 % Sodium Chloride Mini Bag 100 ML IVPB SCH (03:58)
[2019-04-30] MEDS: Ipratropium/Albuterol Neb 3 ML IH PRN (04:01)
[2019-04-30] MEDS: Venlafaxine XR (24 HR) 150 MG CAP.ER.24H PO SCH (07:58)
[2019-04-30] MEDS: *HR* Digoxin 0.125 MG TABLET PO SCH (07:59)
[2019-04-30] MEDS: Sucralfate 1 GM TABLET PO SCH (07:59)
[2019-04-30] MEDS: Cholecalciferol (D-3) 1,000 UNIT (25MCG) TABLET PO SCH (07:59)
[2019-04-30] MEDS: Furosemide 40 MG TABLET PO SCH (07:59)
[2019-04-30] MEDS: polyethylene glycoL 3350 17 GM POWD.PACK PO SCH (08:00)
[2019-04-30 10:46] VITALS: BP 146/85
== END 2019-04-30 12:15 | DRG 871 ==
LOC: EMEROOARM 06:40 → 2NENU 06:40 → ICNU 12:26 → SUATTDRO 04-22 11:53 → 2NNU 04-22 19:27 → 2ANU 04-29 10:33
PROVIDERS: ADMIT Internal Medicine; ATTEND Pharmacist

== ENCOUNTER 2019-05-01 21:35 | Inpatient (IN) ==
[2019-05-01] MEDS ORDERED: 0.9 % Sodium Chloride 2,000 ML ONE (21:46)
[2019-05-01] MEDS ORDERED: Octreotide 50 MCG/ML INJ IVP ONE (21:53)
[2019-05-01] MEDS ORDERED: Pantoprazole 40 MG VIAL IVP STA (21:54)
[2019-05-01 22:06] LABS: Hematocrit 26.5 % (37.5-50.1); Hemoglobin 7.8 g/dL (12.9-16.9); Mean Corpuscular HGB Conc 29.4 g/dL (31.6-35.5); Mean Corpuscular Hemoglobin 28.1 pg (28.0-33.3); Mean Corpuscular Volume 95.3 fL (83.0-100.0); Mean Platelet Volume 9.2 fL (9.4-12.4); Platelet Count 755 K/mcL (140-400); Red Blood Count 2.78 M/mcL (4.19-5.50); Red Cell Distribution Width 16.4 % (11.5-14.5)
[2019-05-01 22:11] LABS: INR 1.2; Prothrombin Time 13.8 Seconds (9.4-12.1)
[2019-05-01 22:24] LABS: BUN/Creatinine Ratio 8 (6-26); Blood Urea Nitrogen 8 mg/dL (8-23); Calcium 8.6 mg/dL (8.6-10.3); Carbon Dioxide 27 mEq/L (23-29); Chloride 96 mEq/L (98-107); Glucose 205 mg/dL (70-105); Osmolality,Calculated 288 (280-300); Potassium 3.5 mEq/L (3.5-5.1); Sodium 137 mEq/L (136-145); eGFR For African Americans > 60 (> 60); eGFR For Non-African Americans > 60 (> 60)
[2019-05-01] MEDS: Octreotide 400 MCG in 0.9 % Sodium Chloride 100 ML IVC SCH (22:29)
[2019-05-02] MEDS ORDERED: Naloxone 0.4 MG/ML INJ IVP PRN (02:48)
[2019-05-02] MEDS: Pantoprazole 40 MG VIAL IVP SCH ×2 (06:04→17:57)
[2019-05-02] MEDS: Octreotide 400 MCG in 0.9 % Sodium Chloride 100 ML IVC SCH ×3 (06:33→23:46)
[2019-05-02] MEDS ORDERED: *HR* Dextrose 50 % in Water (Syg) 50 ML SYRINGE IVP PRN (07:35)
[2019-05-02] MEDS ORDERED: Dextrose Gel 15 GM/37.5 ML TUBE PO PRN ×2 (07:35)
[2019-05-02] MEDS ORDERED: D5% in Water 1,000 ML IVC PRN (07:35)
[2019-05-02] MEDS ORDERED: CLEAR EYES NATURAL TEARS 15 ML BOTTLE BOTH EYES PRN (07:40)
[2019-05-02] MEDS ORDERED: Ipratropium/Albuterol Neb 3 ML IH PRN (07:40)
[2019-05-02] MEDS ORDERED: D5% in 0.9% NACL 1,000 ML IVC SCH ×2 (07:45→09:25)
[2019-05-02 09:05] LABS: Basophils # 0.1 K/mcL (0.0-0.2); Basophils % 0.7 %; Eosinophils # 0.1 K/mcL (0.0-0.6); Eosinophils % 0.5 %; Hematocrit 26.1 % (37.5-50.1); Hemoglobin 8.1 g/dL (12.9-16.9); Immature Granulocytes % 0.6 % (0-4); Lymphocytes # 1.2 K/mcL (0.6-4.6); Mean Corpuscular Hemoglobin 28.8 pg (28.0-33.3); Mean Corpuscular Volume 92.9 fL (83.0-100.0); Mean Platelet Volume 9.4 fL (9.4-12.4); Monocytes # 1.6 K/mcL (0.0-1.3); Monocytes % 11.5 %; Neutrophils # 10.5 K/mcL (1.6-8.9); Nucleated Red Blood Cells 0.2 /100 WBC (0); Platelet Count 561 K/mcL (140-400); Red Blood Count 2.81 M/mcL (4.19-5.50); Red Cell Distribution Width 16.7 % (11.5-14.5); Segmented Neutrophils % 77.7 %; White Blood Count 13.5 K/mcL (4.3-11.1)
[2019-05-02] MEDS: diazePAM 2 MG TABLET PO SCH ×2 (09:56→20:06)
[2019-05-02] MEDS: Sennosides/Docusate Sodium TABLET PO SCH (10:08)
[2019-05-02] MEDS: *HR* Digoxin 0.125 MG TABLET PO SCH (10:09)
[2019-05-02] MEDS: Sucralfate 1 GM TABLET PO SCH ×2 (10:09→15:46)
[2019-05-02] MEDS: Ascorbic Acid 500 MG TABLET PO SCH (10:09)
[2019-05-02] MEDS: Cyanocobalamin (B-12) 1,000 MCG TABLET PO SCH (10:09)
[2019-05-02] MEDS: Venlafaxine XR (24 HR) 150 MG CAP.ER.24H PO SCH (10:09)
[2019-05-02] MEDS: diazePAM 5 MG TABLET PO SCH (10:10)
[2019-05-02] MEDS: cefTRIAXone 1,000 MG in Water for inj. (sterile) 10 ML IVP SCH (10:10)
[2019-05-02 11:35] LABS: Hematocrit 25.6 % (37.5-50.1); Hemoglobin 7.8 g/dL (12.9-16.9); Mean Corpuscular HGB Conc 30.5 g/dL (31.6-35.5); Mean Corpuscular Hemoglobin 28.6 pg (28.0-33.3); Mean Corpuscular Volume 93.8 fL (83.0-100.0); Mean Platelet Volume 9.6 fL (9.4-12.4); Platelet Count 549 K/mcL (140-400); Red Blood Count 2.73 M/mcL (4.19-5.50); Red Cell Distribution Width 16.8 % (11.5-14.5); White Blood Count 13.8 K/mcL (4.3-11.1)
[2019-05-02 12:30] LABS: BUN/Creatinine Ratio 12 (6-26); Blood Urea Nitrogen 9 mg/dL (8-23); Calcium 7.6 mg/dL (8.6-10.3); Carbon Dioxide 29 mEq/L (23-29); Chloride 107 mEq/L (98-107); Glucose 126 mg/dL (70-105); Magnesium 1.6 mg/dL (1.6-2.6); Osmolality,Calculated 288 (280-300); Phosphorous 2.8 mg/dL (2.7-4.5); Potassium 3.4 mEq/L (3.5-5.1); Sodium 139 mEq/L (136-145); eGFR For African Americans > 60 (> 60); eGFR For Non-African Americans > 60 (> 60)
[2019-05-02] MEDS: Insulin LISPRO 300 UNITS/3 ML VIAL SQ SCH ×3 (13:11→23:31)
[2019-05-02 13:16] LABS: Estimated Average Glucose 123 mg/dl
[2019-05-02] MEDS ORDERED: SODIUM CHLORIDE/NAHCO3/KCL/PEG 4,000 ML SOLN.RECON PO ONE (18:20)
[2019-05-02 18:50] LABS: Bilirubin,Urine Negative (Negative); Blood,Urine Negative (Negative); Clarity,Urine Cloudy (Clear); Color,Urine Yellow (Yellow); Glucose,Urine (UA) Normal (Normal); Ketones,Urine Negative (Negative); Specific Gravity,Urine 1.021 (1.010-1.025)
[2019-05-02 18:51] LABS: Leukocyte Esterase,Urine Large (Negative); Nitrite,Urine Negative (Negative); PH,Urine 5.5 pH Units (5.0-8.0); Protein,Urine 30 mg/dL (Neg-Trace); Urobilinogen,Urine Normal (Normal)
[2019-05-02 18:52] LABS: WBC,Urine 15-30 per hpf (0-3); Yeast,Urine Many per hpf (None Seen)
[2019-05-02] MEDS: Melatonin 3 MG TABLET PO SCH (20:05)
[2019-05-02] MEDS ORDERED: *HR* LORazepam 2 MG/ML VIAL IVP ONE (23:32)
[2019-05-03] MEDS: Sucralfate 1 GM TABLET PO SCH (00:15)
[2019-05-03] MEDS: Insulin LISPRO 300 UNITS/3 ML VIAL SQ SCH ×4 (05:36→23:43)
[2019-05-03] MEDS: Pantoprazole 40 MG VIAL IVP SCH (05:36)
[2019-05-03] MEDS ORDERED: *HR* PHENYLEPHRINE 1,000 MCG/10 ML SYRINGE IVP ONE (07:40)
[2019-05-03] MEDS ORDERED: Lidocaine -MPF 2% 2 ML VIAL ONE (07:46)
[2019-05-03 10:28] LABS: Basophils # 0.1 K/mcL (0.0-0.2); Basophils % 0.8 %; Eosinophils # 0.3 K/mcL (0.0-0.6); Eosinophils % 2.6 %; Hematocrit 25.2 % (37.5-50.1); Hemoglobin 7.6 g/dL (12.9-16.9); Lymphocytes % 8.6 %; Mean Corpuscular HGB Conc 30.2 g/dL (31.6-35.5); Mean Corpuscular Hemoglobin 28.5 pg (28.0-33.3); Mean Corpuscular Volume 94.4 fL (83.0-100.0); Mean Platelet Volume 10.1 fL (9.4-12.4); Monocytes # 1.3 K/mcL (0.0-1.3); Monocytes % 11.5 %; Neutrophils # 8.6 K/mcL (1.6-8.9); Nucleated Red Blood Cells 0.4 /100 WBC (0); Platelet Count 323 K/mcL (140-400); Red Blood Count 2.67 M/mcL (4.19-5.50); Red Cell Distribution Width 17.5 % (11.5-14.5); Segmented Neutrophils % 75.5 %; White Blood Count 11.4 K/mcL (4.3-11.1)
[2019-05-03] MEDS: diazePAM 2 MG TABLET PO SCH ×2 (10:42→21:15)
[2019-05-03] MEDS: Sennosides/Docusate Sodium TABLET PO SCH (10:42)
[2019-05-03] MEDS: *HR* Digoxin 0.125 MG TABLET PO SCH (10:53)
[2019-05-03] MEDS: Ascorbic Acid 500 MG TABLET PO SCH (10:53)
[2019-05-03] MEDS: Cyanocobalamin (B-12) 1,000 MCG TABLET PO SCH (10:53)
[2019-05-03] MEDS: Venlafaxine XR (24 HR) 150 MG CAP.ER.24H PO SCH (10:53)
[2019-05-03] MEDS: cefTRIAXone 1,000 MG in Water for inj. (sterile) 10 ML IVP SCH (10:54)
[2019-05-03] MEDS ORDERED: 0.9 % Sodium Chloride 250 ML IVC SCH (11:15)
[2019-05-03 11:20] LABS: BUN/Creatinine Ratio 9 (6-26); Blood Urea Nitrogen 5 mg/dL (8-23); Calcium 8.1 mg/dL (8.6-10.3); Carbon Dioxide 27 mEq/L (23-29); Chloride 112 mEq/L (98-107); Glucose 104 mg/dL (70-105); Magnesium 1.6 mg/dL (1.6-2.6); Osmolality,Calculated 296 (280-300); Phosphorous 2.7 mg/dL (2.7-4.5); Potassium 3.6 mEq/L (3.5-5.1); Sodium 144 mEq/L (136-145); eGFR For African Americans > 60 (> 60); eGFR For Non-African Americans > 60 (> 60)
[2019-05-03] MEDS: diazePAM 5 MG TABLET PO SCH (11:24)
[2019-05-03] MEDS ORDERED: 0.9 % Sodium Chloride 250 ML ONE (11:36)
[2019-05-03] MEDS: Octreotide 400 MCG in 0.9 % Sodium Chloride 100 ML IVC SCH (12:51)
[2019-05-03] MEDS: Furosemide 20 MG/2 ML VIAL IVP SCH ×2 (15:04→21:16)
[2019-05-03 17:26] LABS: Hematocrit 30.5 % (37.5-50.1); Hemoglobin 9.5 g/dL (12.9-16.9)
[2019-05-03 18:44] LABS: ABG Base Excess 7 mEq/L (-2 to 3); ABG HCO3 34 mEq/L (21-27); ABG Oxygen Saturation 99 % (95-98); ABG PCO2 64 mmHg (35-45); ABG PH 7.33 pH Units (7.32-7.45); ABG PO2 134 mmHg (85-104); ABG TCO2 36 mEq/L (20-26)
[2019-05-03] MEDS: Melatonin 3 MG TABLET PO SCH (21:16)
[2019-05-03] MEDS ORDERED: *HR* Digoxin 0.5 MG/2 ML AMPUL IVP ONE (23:24)
[2019-05-03] MEDS ORDERED: *HR* Digoxin 0.125 MG TABLET PO ONE (23:31)
[2019-05-04 00:21] LABS: Magnesium 1.7 mg/dL (1.6-2.6); Potassium 3.8 mEq/L (3.5-5.1)
[2019-05-04 03:48] LABS: Basophils # 0.1 K/mcL (0.0-0.2); Basophils % 0.9 %; Eosinophils # 0.2 K/mcL (0.0-0.6); Eosinophils % 1.9 %; Hematocrit 29.2 % (37.5-50.1); Immature Granulocytes % 0.5 % (0-4); Lymphocytes # 1.4 K/mcL (0.6-4.6); Lymphocytes % 15.1 %; Mean Corpuscular HGB Conc 30.8 g/dL (31.6-35.5); Mean Corpuscular Volume 94.2 fL (83.0-100.0); Mean Platelet Volume 9.3 fL (9.4-12.4); Monocytes # 1.2 K/mcL (0.0-1.3); Monocytes % 13.1 %; Neutrophils # 6.2 K/mcL (1.6-8.9); Platelet Count 441 K/mcL (140-400); Red Cell Distribution Width 16.7 % (11.5-14.5); Segmented Neutrophils % 68.5 %; White Blood Count 9.1 K/mcL (4.3-11.1)
[2019-05-04 04:00] LABS: BUN/Creatinine Ratio 8 (6-26); Blood Urea Nitrogen 5 mg/dL (8-23); Carbon Dioxide 27 mEq/L (23-29); Chloride 111 mEq/L (98-107); Glucose 105 mg/dL (70-105); Magnesium 1.6 mg/dL (1.6-2.6); Osmolality,Calculated 298 (280-300); Phosphorous 2.2 mg/dL (2.7-4.5); Potassium 3.1 mEq/L (3.5-5.1); Sodium 145 mEq/L (136-145); eGFR For African Americans > 60 (> 60); eGFR For Non-African Americans > 60 (> 60)
[2019-05-04] MEDS: Insulin LISPRO 300 UNITS/3 ML VIAL SQ SCH ×2 (05:32→12:18)
[2019-05-04] MEDS ORDERED: Potassium Phosphate 44 MEQ in 0.9 % Sodium Chloride 250 ML IVPB ONE (07:27)
[2019-05-04] MEDS: Cyanocobalamin (B-12) 1,000 MCG TABLET PO SCH (09:48)
[2019-05-04] MEDS: diazePAM 2 MG TABLET PO SCH ×2 (09:48→23:33)
[2019-05-04] MEDS: *HR* Digoxin 0.125 MG TABLET PO SCH (09:48)
[2019-05-04] MEDS: Sennosides/Docusate Sodium TABLET PO SCH (09:48)
[2019-05-04] MEDS: Venlafaxine XR (24 HR) 150 MG CAP.ER.24H PO SCH (09:48)
[2019-05-04] MEDS: Ascorbic Acid 500 MG TABLET PO SCH (09:49)
[2019-05-04] MEDS: Furosemide 20 MG/2 ML VIAL IVP SCH ×2 (09:50→21:12)
[2019-05-04] MEDS: diazePAM 5 MG TABLET PO SCH (12:48)
[2019-05-04] MEDS: Melatonin 3 MG TABLET PO SCH (21:12)
[2019-05-05 07:43] LABS: Basophils # 0.1 K/mcL (0.0-0.2); Basophils % 0.8 %; Eosinophils # 0.4 K/mcL (0.0-0.6); Eosinophils % 4.3 %; Hemoglobin 9.5 g/dL (12.9-16.9); Immature Granulocytes % 0.4 % (0-4); Lymphocytes # 1.5 K/mcL (0.6-4.6); Lymphocytes % 17.5 %; Mean Corpuscular HGB Conc 30.6 g/dL (31.6-35.5); Mean Corpuscular Hemoglobin 29.2 pg (28.0-33.3); Mean Corpuscular Volume 95.4 fL (83.0-100.0); Mean Platelet Volume 9.1 fL (9.4-12.4); Monocytes # 1.2 K/mcL (0.0-1.3); Monocytes % 14.9 %; Neutrophils # 5.2 K/mcL (1.6-8.9); Platelet Count 446 K/mcL (140-400); Red Blood Count 3.25 M/mcL (4.19-5.50); Red Cell Distribution Width 17.1 % (11.5-14.5); Segmented Neutrophils % 62.1 %; White Blood Count 8.3 K/mcL (4.3-11.1)
[2019-05-05 08:03] LABS: BUN/Creatinine Ratio 9 (6-26); Blood Urea Nitrogen 6 mg/dL (8-23); Calcium 8.2 mg/dL (8.6-10.3); Carbon Dioxide 34 mEq/L (23-29); Chloride 107 mEq/L (98-107); Glucose 84 mg/dL (70-105); Magnesium 1.7 mg/dL (1.6-2.6); Osmolality,Calculated 299 (280-300); Potassium 3.2 mEq/L (3.5-5.1); Sodium 146 mEq/L (136-145); eGFR For African Americans > 60 (> 60); eGFR For Non-African Americans > 60 (> 60)
[2019-05-05] MEDS ORDERED: Aminoglycoside Consult 1 EACH MC ONE (08:18)
[2019-05-05] MEDS: Sennosides/Docusate Sodium TABLET PO SCH (08:32)
[2019-05-05] MEDS: Furosemide 20 MG/2 ML VIAL IVP SCH (08:32)
[2019-05-05] MEDS: *HR* Digoxin 0.125 MG TABLET PO SCH (08:33)
[2019-05-05] MEDS: diazePAM 2 MG TABLET PO SCH ×2 (08:33→20:50)
[2019-05-05] MEDS: Cyanocobalamin (B-12) 1,000 MCG TABLET PO SCH (08:33)
[2019-05-05] MEDS: Ascorbic Acid 500 MG TABLET PO SCH (08:33)
[2019-05-05] MEDS: Venlafaxine XR (24 HR) 150 MG CAP.ER.24H PO SCH (08:33)
[2019-05-05] MEDS: diazePAM 5 MG TABLET PO SCH (12:30)
[2019-05-05] MEDS: Melatonin 3 MG TABLET PO SCH (20:51)
[2019-05-06 01:53] LABS: Hematocrit 31.5 % (37.5-50.1); Hemoglobin 9.5 g/dL (12.9-16.9)
[2019-05-06 02:13] LABS: BUN/Creatinine Ratio 11 (6-26); Blood Urea Nitrogen 7 mg/dL (8-23); Calcium 8.4 mg/dL (8.6-10.3); Carbon Dioxide 35 mEq/L (23-29); Chloride 104 mEq/L (98-107); Glucose 106 mg/dL (70-105); Magnesium 1.8 mg/dL (1.6-2.6); Osmolality,Calculated 296 (280-300); Phosphorous 2.1 mg/dL (2.7-4.5); Potassium 3.6 mEq/L (3.5-5.1); Sodium 144 mEq/L (136-145); eGFR For African Americans > 60 (> 60); eGFR For Non-African Americans > 60 (> 60)
[2019-05-06] MEDS ORDERED: Artificial Tears SOLN 15 ML BOTTLE RIGHT EYE PRN (03:35)
[2019-05-06] MEDS: diazePAM 2 MG TABLET PO SCH (08:53)
[2019-05-06] MEDS: Ascorbic Acid 500 MG TABLET PO SCH (08:54)
[2019-05-06] MEDS: Cyanocobalamin (B-12) 1,000 MCG TABLET PO SCH (08:54)
[2019-05-06] MEDS: *HR* Digoxin 0.125 MG TABLET PO SCH (08:54)
[2019-05-06] MEDS: Venlafaxine XR (24 HR) 150 MG CAP.ER.24H PO SCH (08:55)
[2019-05-06] MEDS: Sennosides/Docusate Sodium TABLET PO SCH (08:55)
[2019-05-06] MEDS ORDERED: Furosemide 20 MG/2 ML VIAL IVP SCH (09:00)
[2019-05-06] MEDS ORDERED: Furosemide 20 MG TABLET PO SCH (09:00)
[2019-05-06 11:19] VITALS: BP 119/84
[2019-05-06] MEDS: diazePAM 5 MG TABLET PO SCH (11:31)
== END 2019-05-06 13:50 ==
LOC: 3ANU 21:35 → EMEROOARM 21:35 → SUATTDRO 23:33 → 3ANU 05-02 00:10
PROVIDERS: ADMIT Internal Medicine; ATTEND Internal Medicine

== ENCOUNTER 2020-04-21 14:39 | Inpatient (IN) ==
[2020-04-21] MEDS ORDERED: Isovue-370 500 ML BOTTLE IVP ONE (15:06)
[2020-04-21 15:48] LABS: INR 1.2; Prothrombin Time 13.3 Seconds (9.4-12.1)
[2020-04-21 15:50] LABS: VBG HCO3 37 mEq/L (21-27); VBG PCO2 56 mmHg (41-51); VBG PH 7.43 pH Units (7.32-7.42); VBG PO2 141 mmHg (25-50)
[2020-04-21 15:51] LABS: Activated Partial Thrombo Time 34.6 Seconds (26.0-36.0)
[2020-04-21 15:53] LABS: Immature Granulocytes % 0.2 % (0-4)
[2020-04-21 15:54] LABS: Basophils % 0.7 %
[2020-04-21 15:55] LABS: Basophils # 0.1 K/mcL (0.0-0.2); Eosinophils # 0.1 K/mcL (0.0-0.6); Hematocrit 36.4 % (37.5-50.1); Lymphocytes % 10.3 %; Mean Corpuscular HGB Conc 27.5 g/dL (31.6-35.5); Mean Corpuscular Hemoglobin 23.4 pg (28.0-33.3); Mean Platelet Volume 9.8 fL (9.4-12.4); Monocytes # 0.6 K/mcL (0.0-1.3); Monocytes % 6.7 %; Neutrophils # 7.5 K/mcL (1.6-8.9); Platelet Count 325 K/mcL (140-400); Red Blood Count 4.28 M/mcL (4.19-5.50); Red Cell Distribution Width 16.1 % (11.5-14.5); Segmented Neutrophils % 81.1 %; White Blood Count 9.2 K/mcL (4.3-11.1)
[2020-04-21 16:06] LABS: BUN/Creatinine Ratio 24 (6-26); Blood Urea Nitrogen 10 mg/dL (8-23); Calcium 9.3 mg/dL (8.6-10.3); Carbon Dioxide 37 mEq/L (23-29); Chloride 99 mEq/L (98-107); Glucose 99 mg/dL (70-105); Osmolality,Calculated 289 (280-300); Potassium 4.2 mEq/L (3.5-5.1); Sodium 140 mEq/L (136-145); eGFR For African Americans > 60 (> 60); eGFR For Non-African Americans > 60 (> 60)
[2020-04-21 16:07] LABS: Troponin I 0.03 ng/mL (< 0.04)
[2020-04-21 16:17] LABS: Stomatocytes 1+ (Not Present)
[2020-04-21 16:18] LABS: Hypochromasia Present (Not Present); Platelet Estimate Normal (Normal)
[2020-04-21 18:17] LABS: ABG Base Excess 13 mEq/L (-2 to 3); ABG HCO3 42 mEq/L (21-27); ABG Oxygen Saturation 99 % (95-98); ABG PCO2 78 mmHg (35-45); ABG PH 7.33 pH Units (7.32-7.45); ABG PO2 166 mmHg (85-104); ABG TCO2 44 mEq/L (20-26)
[2020-04-21 20:37] LABS: Adenovirus Not Detected (Not Detect); Coronavirus 229E Not Detected (Not Detect); Coronavirus HKU1 Not Detected (Not Detect); Coronavirus NL63 Not Detected (Not Detect); Coronavirus OC43 Not Detected (Not Detect)
[2020-04-21 20:38] LABS: Bordetella Pertussis Not Detected (Not Detect); Chlamydophila pneumoniae Not Detected (Not Detect); Human Metapneumovirus Not Detected (Not Detect); Human Rhinovirus/Enterovirus Not Detected (Not Detect); Influenza A Subtype 2009 H1 Not Detected (Not Detect); Influenza B Not Detected (Not Detect); Mycoplasma pneumoniae Not Detected (Not Detect); Parainfluenza Virus 1 Not Detected (Not Detect); Parainfluenza Virus 2 Not Detected (Not Detect); Parainfluenza Virus 3 Not Detected (Not Detect); Parainfluenza Virus 4 Not Detected (Not Detect); Respiratory Syncytial Virus Not Detected (Not Detect); SARS-CoV-2 Not Detected (Not Detect)
[2020-04-21] MEDS ORDERED: *HR* Metoprolol 5 MG/5 ML VIAL IVP ONE (20:53)
[2020-04-21] MEDS ORDERED: Ondansetron 4 MG/2 ML VIAL IVP PRN (20:55)
[2020-04-21] MEDS ORDERED: Naloxone 0.4 MG/ML INJ IVP PRN (20:55)
[2020-04-21] MEDS ORDERED: Perflutren Lipid Microsphere 1.3 ML in 0.9 % Sodium Chloride 8.7 ML IVP PRN (21:24)
[2020-04-21 21:49] LABS: ABG Base Excess 12 mEq/L (-2 to 3); ABG HCO3 42 mEq/L (21-27); ABG Oxygen Saturation 98 % (95-98); ABG PCO2 88 mmHg (35-45); ABG PH 7.29 pH Units (7.32-7.45); ABG PO2 118 mmHg (85-104); ABG TCO2 45 mEq/L (20-26)
[2020-04-21] MEDS ORDERED: Levalbuterol Neb 1.25 MG/3 ML IH PRN (22:22)
[2020-04-21 22:54] LABS: Hematocrit 38.6 % (37.5-50.1); Hemoglobin 10.5 g/dL (12.9-16.9)
[2020-04-21] MEDS: Famotidine 20 MG/2 ML VIAL IVP SCH (23:38)
[2020-04-22 02:29] LABS: Bilirubin,Urine Negative (Negative); Blood,Urine Negative (Negative); Clarity,Urine Turbid (Clear); Color,Urine Yellow (Yellow); Glucose,Urine (UA) Normal (Normal); Ketones,Urine Negative (Negative); Leukocyte Esterase,Urine Large (Negative); Mucus,Urine Few per lpf (None-Few); Nitrite,Urine Positive (Negative); PH,Urine 7.5 pH Units (5.0-8.0); Protein,Urine 70 mg/dL (Neg-Trace); RBC,Urine 15-30 per hpf (0-3); Specific Gravity,Urine > 1.030 (1.010-1.025); Squamous Epithelial Cell,Urine Few per hpf (None-Few); Transitional Epi Cells,Urine Few per hpf (None-Few); Urobilinogen,Urine Normal (Normal); WBC,Urine 50-100 per hpf (0-3)
[2020-04-22 03:55] LABS: Mean Platelet Volume 9.6 fL (9.4-12.4)
[2020-04-22 03:56] LABS: Hemoglobin 10.4 g/dL (12.9-16.9); Mean Corpuscular HGB Conc 28.1 g/dL (31.6-35.5); Mean Corpuscular Volume 81.9 fL (83.0-100.0); Platelet Count 333 K/mcL (140-400); Red Blood Count 4.52 M/mcL (4.19-5.50); Red Cell Distribution Width 16.7 % (11.5-14.5); White Blood Count 10.2 K/mcL (4.3-11.1)
[2020-04-22 03:59] LABS: BUN/Creatinine Ratio 26 (6-26); Blood Urea Nitrogen 11 mg/dL (8-23); Calcium 9.3 mg/dL (8.6-10.3); Carbon Dioxide 39 mEq/L (23-29); Chloride 98 mEq/L (98-107); Chol/HDL Ratio 2.7 (0-4.9); Cholesterol 156 mg/dL (< 200); Glucose 87 mg/dL (70-105); HDL Cholesterol 58 mg/dL (40-59); LDL Cholesterol,Calculated 80 mg/dL (< 100); Osmolality,Calculated 291 (280-300); Potassium 4.2 mEq/L (3.5-5.1); Sodium 141 mEq/L (136-145); Triglycerides 90 mg/dL (< 150); eGFR For African Americans > 60 (> 60); eGFR For Non-African Americans > 60 (> 60)
[2020-04-22 04:00] LABS: % Iron Saturation 5 % (20-55); Iron 20 mcg/dL (65-175); Transferrin 276 mg/dL (203-362)
[2020-04-22 04:05] LABS: ABG Base Excess 12 mEq/L (-2 to 3); ABG HCO3 41 mEq/L (21-27); ABG Oxygen Saturation 97 % (95-98); ABG PCO2 75 mmHg (35-45); ABG PH 7.35 pH Units (7.32-7.45); ABG PO2 99 mmHg (85-104); ABG TCO2 43 mEq/L (20-26); Blood Gas Pressure Support 6 cm H2O
[2020-04-22 04:18] LABS: Ferritin 18 ng/mL (20-250)
[2020-04-22 04:27] LABS: Folate > 22.3 ng/mL (3.0-16.0); Vitamin B12 1184 pg/mL (250-1100)
[2020-04-22] MEDS: Famotidine 20 MG/2 ML VIAL IVP SCH ×2 (06:38→16:04)
[2020-04-22] MEDS ORDERED: Ondansetron 4 MG/2 ML VIAL ONE (07:53)
[2020-04-22] MEDS ORDERED: *HR* FentaNYL (PF) 100 MCG/2 ML VIAL ONE (07:53)
[2020-04-22] MEDS ORDERED: *HR* Succinylcholine 200 MG/10 ML VIAL IVP ONE (07:53)
[2020-04-22] MEDS ORDERED: Lidocaine -MPF 4% 5 ML AMPUL ONE (07:53)
[2020-04-22] MEDS ORDERED: Lidocaine -MPF 2% 2 ML VIAL ONE (07:53)
[2020-04-22] MEDS: Ringers Solution, Lactated 1,000 ML IVC SCH (09:00)
[2020-04-22] MEDS: diazePAM 2 MG TABLET PO SCH (18:20)
[2020-04-22] MEDS: Lurasidone 20 MG TABLET PO SCH (18:20)
[2020-04-22 18:25] LABS: Appearance of Body Fluid Clear (Clear)
[2020-04-22 18:26] LABS: Volume of Body Fluid 16 mL
[2020-04-22] MEDS: Melatonin 3 MG TABLET PO SCH (19:51)
[2020-04-23 02:57] LABS: Mean Platelet Volume 9.9 fL (9.4-12.4); Red Cell Distribution Width 16.7 % (11.5-14.5)
[2020-04-23 02:58] LABS: Hematocrit 36.1 % (37.5-50.1); Hemoglobin 9.7 g/dL (12.9-16.9); Mean Corpuscular HGB Conc 26.9 g/dL (31.6-35.5); Mean Corpuscular Hemoglobin 23.3 pg (28.0-33.3); Mean Corpuscular Volume 86.8 fL (83.0-100.0); Platelet Count 299 K/mcL (140-400); Red Blood Count 4.16 M/mcL (4.19-5.50); White Blood Count 5.7 K/mcL (4.3-11.1)
[2020-04-23 03:03] LABS: BUN/Creatinine Ratio 35 (6-26); Blood Urea Nitrogen 19 mg/dL (8-23); Calcium 8.8 mg/dL (8.6-10.3); Carbon Dioxide 37 mEq/L (23-29); Chloride 101 mEq/L (98-107); Glucose 107 mg/dL (70-105); Osmolality,Calculated 297 (280-300); Potassium 4.4 mEq/L (3.5-5.1); Sodium 142 mEq/L (136-145); eGFR For African Americans > 60 (> 60); eGFR For Non-African Americans > 60 (> 60)
[2020-04-23] MEDS: Ringers Solution, Lactated 1,000 ML IVC SCH (04:46)
[2020-04-23] MEDS: Famotidine 20 MG/2 ML VIAL IVP SCH (06:03)
[2020-04-23] MEDS: Venlafaxine XR (24 HR) 75 MG CAP.ER.24H PO SCH (08:40)
[2020-04-23] MEDS ORDERED: diazePAM 2 MG TABLET PO SCH (09:00)
[2020-04-23 09:32] LABS: ABG Base Excess 11 mEq/L (-2 to 3); ABG HCO3 41 mEq/L (21-27); ABG Oxygen Saturation 87 % (95-98); ABG PCO2 95 mmHg (35-45); ABG PH 7.25 pH Units (7.32-7.45); ABG PO2 65 mmHg (85-104); ABG TCO2 44 mEq/L (20-26)
[2020-04-23] MEDS ORDERED: Perflutren Lipid Microsphere 1.3 ML in 0.9 % Sodium Chloride 8.7 ML IVP PRN (10:16)
[2020-04-23] MEDS ORDERED: diazePAM 5 MG TABLET PO SCH (12:00)
[2020-04-23 15:29] LABS: ABG Base Excess 9 mEq/L (-2 to 3); ABG HCO3 39 mEq/L (21-27); ABG Oxygen Saturation 97 % (95-98); ABG PCO2 84 mmHg (35-45); ABG PH 7.28 pH Units (7.32-7.45); ABG PO2 107 mmHg (85-104); ABG TCO2 42 mEq/L (20-26)
[2020-04-23] MEDS: Lurasidone 20 MG TABLET PO SCH (16:09)
[2020-04-23] MEDS: diazePAM 2 MG TABLET PO SCH (16:10)
[2020-04-23] MEDS: cefTRIAXone 1,000 MG in Water for inj. (sterile) 10 ML IVP SCH (16:17)
[2020-04-24] MEDS ORDERED: 0.9 % Sodium Chloride 500 ML IVC ONE (00:12)
[2020-04-24] MEDS: Ringers Solution, Lactated 1,000 ML IVC SCH ×2 (05:39→20:45)
[2020-04-24 05:45] LABS: Basophils % 0.4 %; Immature Granulocytes % 0.3 % (0-4); Lymphocytes % 10.2 %
[2020-04-24 05:47] LABS: Basophils # 0.1 K/mcL (0.0-0.2); Eosinophils # 0.2 K/mcL (0.0-0.6); Eosinophils % 1.3 %; Hematocrit 35.2 % (37.5-50.1); Hemoglobin 9.5 g/dL (12.9-16.9); Lymphocytes # 1.3 K/mcL (0.6-4.6); Mean Corpuscular Hemoglobin 23.3 pg (28.0-33.3); Mean Corpuscular Volume 86.3 fL (83.0-100.0); Mean Platelet Volume 9.6 fL (9.4-12.4); Monocytes # 1.3 K/mcL (0.0-1.3); Monocytes % 10.9 %; Neutrophils # 9.5 K/mcL (1.6-8.9); Platelet Count 274 K/mcL (140-400); Red Blood Count 4.08 M/mcL (4.19-5.50); Red Cell Distribution Width 16.7 % (11.5-14.5); Segmented Neutrophils % 76.9 %; White Blood Count 12.3 K/mcL (4.3-11.1)
[2020-04-24 06:07] LABS: Alanine Aminotransferase 8 Units/L (7-52); Albumin 3.2 g/dL (3.5-5.7); Albumin/Globulin Ratio 0.9 (1.1-2.2); Alkaline Phosphatase 88 Units/L (34-104); Aspartate Amino Transferase 15 Units/L (13-39); BUN/Creatinine Ratio 46 (6-26); Bilirubin,Total 0.2 mg/dL (0.3-1.0); Blood Urea Nitrogen 26 mg/dL (8-23); Calcium 8.6 mg/dL (8.6-10.3); Carbon Dioxide 36 mEq/L (23-29); Chloride 100 mEq/L (98-107); Globulin 3.5 g/dL (2.4-3.5); Glucose 103 mg/dL (70-105); Osmolality,Calculated 293 (280-300); Potassium 4.2 mEq/L (3.5-5.1); Sodium 139 mEq/L (136-145); Total Protein 6.7 g/dL (6.4-8.9); eGFR For African Americans > 60 (> 60); eGFR For Non-African Americans > 60 (> 60)
[2020-04-24 06:18] LABS: Hypochromasia Present (Not Present); Platelet Estimate Normal (Normal); Stomatocytes 1+ (Not Present)
[2020-04-24] MEDS: Venlafaxine XR (24 HR) 75 MG CAP.ER.24H PO SCH (08:17)
[2020-04-24 15:33] LABS: ABG Base Excess 11 mEq/L (-2 to 3); ABG HCO3 42 mEq/L (21-27); ABG Oxygen Saturation 100 % (95-98); ABG PCO2 104 mmHg (35-45); ABG PH 7.22 pH Units (7.32-7.45); ABG PO2 252 mmHg (85-104); ABG TCO2 45 mEq/L (20-26)
[2020-04-24] MEDS: cefTRIAXone 1,000 MG in Water for inj. (sterile) 10 ML IVP SCH (16:33)
[2020-04-24] MEDS: *HR* Heparin 5,000 UNIT/ML VIAL SQ SCH (16:34)
[2020-04-24] MEDS: Vancomycin 1,250 MG/262.5 ML IV.SOLN IVPB SCH (16:48)
[2020-04-24] MEDS ORDERED: *HR* Metoprolol 5 MG/5 ML VIAL IVP ONE (18:12)
[2020-04-24] MEDS ORDERED: Dexmedetomidine HCl 400 MCG/100 ML MLS IVC ONE (18:19)
[2020-04-24] MEDS ORDERED: DilTIAZem 50 MG/50 ML IV.SOLN IVC SCH (18:30)
[2020-04-24] MEDS: Dexmedetomidine HCl 400 MCG/100 ML MLS IVC SCH (18:35)
[2020-04-24 19:21] LABS: VBG Ionized Calcium 1.14 mmol/L (1.15-1.35)
[2020-04-24 19:37] LABS: BUN/Creatinine Ratio 42 (6-26); Blood Urea Nitrogen 23 mg/dL (8-23); Calcium 8.5 mg/dL (8.6-10.3); Carbon Dioxide 35 mEq/L (23-29); Chloride 100 mEq/L (98-107); Glucose 139 mg/dL (70-105); Magnesium 2.3 mg/dL (1.6-2.6); Osmolality,Calculated 294 (280-300); Phosphorous 2.2 mg/dL (2.7-4.5); Potassium 4.1 mEq/L (3.5-5.1); Sodium 139 mEq/L (136-145); eGFR For African Americans > 60 (> 60); eGFR For Non-African Americans > 60 (> 60)
[2020-04-24] MEDS: Lactulose Oral Soln 20 GM/30 ML UDC PO SCH (21:47)
[2020-04-24] MEDS ORDERED: *HR* LORazepam 2 MG/ML VIAL IVP ONE (22:19)
[2020-04-25 00:57] LABS: Basophils % 0.4 %; Eosinophils # 0.1 K/mcL (0.0-0.6); Eosinophils % 1.3 %; Hematocrit 32.3 % (37.5-50.1); Hemoglobin 8.8 g/dL (12.9-16.9); Immature Granulocytes % 0.1 % (0-4); Immature Platelets 6.4 % (1.1-6.1); Lymphocytes # 0.9 K/mcL (0.6-4.6); Lymphocytes % 11.3 %; Mean Corpuscular HGB Conc 27.2 g/dL (31.6-35.5); Mean Corpuscular Hemoglobin 22.9 pg (28.0-33.3); Mean Corpuscular Volume 84.1 fL (83.0-100.0); Mean Platelet Volume 10.4 fL (9.4-12.4); Monocytes # 0.9 K/mcL (0.0-1.3); Monocytes % 11.4 %; Neutrophils # 5.8 K/mcL (1.6-8.9); Platelet Count 165 K/mcL (140-400); Red Blood Count 3.84 M/mcL (4.19-5.50); Red Cell Distribution Width 16.4 % (11.5-14.5); Segmented Neutrophils % 75.5 %; White Blood Count 7.7 K/mcL (4.3-11.1)
[2020-04-25 01:13] LABS: BUN/Creatinine Ratio 59 (6-26); Blood Urea Nitrogen 24 mg/dL (8-23); Calcium 8.4 mg/dL (8.6-10.3); Carbon Dioxide 33 mEq/L (23-29); Chloride 101 mEq/L (98-107); Glucose 115 mg/dL (70-105); Osmolality,Calculated 293 (280-300); Potassium 4.6 mEq/L (3.5-5.1); Sodium 139 mEq/L (136-145); eGFR For African Americans > 60 (> 60); eGFR For Non-African Americans > 60 (> 60)
[2020-04-25 01:15] LABS: Troponin I < 0.03 ng/mL (< 0.04)
[2020-04-25] MEDS: Dexmedetomidine HCl 400 MCG/100 ML MLS IVC SCH ×3 (01:17→15:25)
[2020-04-25 01:19] LABS: Hypochromasia Present (Not Present); Platelet Estimate Normal (Normal)
[2020-04-25] MEDS ORDERED: *HR* LORazepam 2 MG/ML VIAL IVP ONE (02:17)
[2020-04-25 04:01] LABS: ABG Base Excess 10 mEq/L (-2 to 3); ABG HCO3 38 mEq/L (21-27); ABG Oxygen Saturation 97 % (95-98); ABG PCO2 79 mmHg (35-45); ABG PO2 102 mmHg (85-104); ABG TCO2 41 mEq/L (20-26); Blood Gas Modality AVAPS; Blood Gas VT 550 cc
[2020-04-25] MEDS: *HR* Heparin 5,000 UNIT/ML VIAL SQ SCH ×2 (05:59→17:56)
[2020-04-25] MEDS: Lactulose Oral Soln 20 GM/30 ML UDC PO SCH ×2 (09:46→20:55)
[2020-04-25] MEDS: Venlafaxine XR (24 HR) 75 MG CAP.ER.24H PO SCH (09:46)
[2020-04-25] MEDS: Ringers Solution, Lactated 1,000 ML IVC SCH (16:50)
[2020-04-25] MEDS: cefTRIAXone 1,000 MG in Water for inj. (sterile) 10 ML IVP SCH (17:55)
[2020-04-25] MEDS: Vancomycin 1,250 MG/262.5 ML IV.SOLN IVPB SCH (17:55)
[2020-04-25] MEDS: Melatonin 3 MG TABLET PO SCH (20:55)
[2020-04-26 05:12] LABS: Eosinophils % 3.9 %; Immature Granulocytes % 0.2 % (0-4); Red Cell Distribution Width 16.4 % (11.5-14.5)
[2020-04-26 05:14] LABS: Basophils % 0.6 %; Eosinophils # 0.3 K/mcL (0.0-0.6); Hematocrit 35.5 % (37.5-50.1); Hemoglobin 9.5 g/dL (12.9-16.9); Lymphocytes # 0.8 K/mcL (0.6-4.6); Lymphocytes % 12.5 %; Mean Corpuscular HGB Conc 26.8 g/dL (31.6-35.5); Mean Corpuscular Hemoglobin 23.3 pg (28.0-33.3); Mean Corpuscular Volume 87.2 fL (83.0-100.0); Mean Platelet Volume 10.2 fL (9.4-12.4); Monocytes # 0.9 K/mcL (0.0-1.3); Monocytes % 14.1 %; Platelet Count 249 K/mcL (140-400); Red Blood Count 4.07 M/mcL (4.19-5.50); Segmented Neutrophils % 68.7 %; White Blood Count 6.5 K/mcL (4.3-11.1)
[2020-04-26 05:15] LABS: Neutrophils # 4.5 K/mcL (1.6-8.9)
[2020-04-26 05:26] LABS: BUN/Creatinine Ratio 43 (6-26); Blood Urea Nitrogen 16 mg/dL (8-23); Calcium 8.8 mg/dL (8.6-10.3); Carbon Dioxide 36 mEq/L (23-29); Chloride 101 mEq/L (98-107); Glucose 108 mg/dL (70-105); Osmolality,Calculated 290 (280-300); Potassium 4.1 mEq/L (3.5-5.1); Sodium 139 mEq/L (136-145); eGFR For African Americans > 60 (> 60); eGFR For Non-African Americans > 60 (> 60)
[2020-04-26 05:27] LABS: Anisocytosis 1+ (Not Present); Hypochromasia Present (Not Present); Platelet Estimate Normal (Normal)
[2020-04-26] MEDS: *HR* Heparin 5,000 UNIT/ML VIAL SQ SCH ×2 (05:33→17:27)
[2020-04-26 07:40] LABS: Thyroid Stimulating Hormone 2.036 mcIU/mL (0.340-5.600)
[2020-04-26] MEDS: Venlafaxine XR (24 HR) 75 MG CAP.ER.24H PO SCH (08:29)
[2020-04-26] MEDS: Lactulose Oral Soln 20 GM/30 ML UDC PO SCH ×2 (08:29→21:13)
[2020-04-26] MEDS: Ringers Solution, Lactated 1,000 ML IVC SCH (17:25)
[2020-04-26] MEDS: cefTRIAXone 1,000 MG in Water for inj. (sterile) 10 ML IVP SCH (17:27)
[2020-04-26] MEDS: Vancomycin 1,500 MG/265 ML IV.SOLN IVPB SCH (17:28)
[2020-04-26] MEDS: Vancomycin 1,250 MG/262.5 ML IV.SOLN IVPB SCH (17:28)
[2020-04-26] MEDS: Lurasidone 20 MG TABLET PO SCH (17:29)
[2020-04-26] MEDS: Melatonin 3 MG TABLET PO SCH (21:12)
[2020-04-27] MEDS ORDERED: hydrOXYzine pamoate 25 MG CAPSULE PO ONE (00:29)
[2020-04-27] MEDS ORDERED: *HR* Metoprolol 5 MG/5 ML VIAL IVP ONE ×2 (00:29→01:55)
[2020-04-27 02:16] LABS: ABG Base Excess 11 mEq/L (-2 to 3); ABG HCO3 40 mEq/L (21-27); ABG Oxygen Saturation 97 % (95-98); ABG PCO2 77 mmHg (35-45); ABG PH 7.33 pH Units (7.32-7.45); ABG PO2 105 mmHg (85-104); ABG TCO2 43 mEq/L (20-26); Blood Gas Modality avaps; Blood Gas VT 550 cc
[2020-04-27] MEDS ORDERED: DilTIAZem 50 MG in 0.9 % Sodium Chloride 40 ML IVC SCH ×2 (02:30→04:00)
[2020-04-27] MEDS: *HR* Heparin 5,000 UNIT/ML VIAL SQ SCH (04:05)
[2020-04-27] MEDS ORDERED: 0.9 % Sodium Chloride 1,000 ML ONE (05:00)
[2020-04-27 05:26] LABS: Immature Granulocytes % 0.2 % (0-4)
[2020-04-27 05:27] LABS: Basophils # 0.1 K/mcL (0.0-0.2); Basophils % 0.6 %; Eosinophils # 0.2 K/mcL (0.0-0.6); Eosinophils % 2.7 %; Hematocrit 36.3 % (37.5-50.1); Lymphocytes % 10.9 %; Mean Corpuscular HGB Conc 27.5 g/dL (31.6-35.5); Mean Corpuscular Hemoglobin 22.7 pg (28.0-33.3); Mean Corpuscular Volume 82.3 fL (83.0-100.0); Mean Platelet Volume 9.9 fL (9.4-12.4); Monocytes # 1.1 K/mcL (0.0-1.3); Monocytes % 12.4 %; Platelet Count 290 K/mcL (140-400); Red Blood Count 4.41 M/mcL (4.19-5.50); Red Cell Distribution Width 16.6 % (11.5-14.5); Segmented Neutrophils % 73.2 %; White Blood Count 8.9 K/mcL (4.3-11.1)
[2020-04-27 05:36] LABS: Neutrophils # 6.5 K/mcL (1.6-8.9)
[2020-04-27 05:43] LABS: BUN/Creatinine Ratio 20 (6-26); Blood Urea Nitrogen 8 mg/dL (8-23); Carbon Dioxide 35 mEq/L (23-29); Chloride 100 mEq/L (98-107); Glucose 108 mg/dL (70-105); Osmolality,Calculated 291 (280-300); Potassium 3.3 mEq/L (3.5-5.1); Sodium 141 mEq/L (136-145); eGFR For African Americans > 60 (> 60); eGFR For Non-African Americans > 60 (> 60)
[2020-04-27 06:00] LABS: Anisocytosis 1+ (Not Present); Hypochromasia Present (Not Present); Platelet Estimate Normal (Normal)
[2020-04-27] MEDS: DilTIAZem 50 MG in 0.9 % Sodium Chloride 40 ML IVC SCH (06:27)
[2020-04-27] MEDS ORDERED: *HR* LORazepam 2 MG/ML VIAL IM STA (07:57)
[2020-04-27] MEDS ORDERED: Haloperidol Lactate 5 MG/ML VIAL IM ONE ×2 (09:24→13:43)
[2020-04-27] MEDS: Venlafaxine XR (24 HR) 75 MG CAP.ER.24H PO SCH (11:36)
[2020-04-27] MEDS: Lactulose Oral Soln 20 GM/30 ML UDC PO SCH ×2 (11:37→21:03)
[2020-04-27] MEDS: Dexmedetomidine HCl 400 MCG/100 ML MLS IVC SCH ×2 (12:55→22:03)
[2020-04-27] MEDS ORDERED: *HR* Heparin 5,000 UNIT/ML VIAL IVP ONE ×2 (14:19→16:57)
[2020-04-27] MEDS ORDERED: *HR* Heparin 5,000 UNIT/ML VIAL IVP PRN ×4 (14:19→16:57)
[2020-04-27] MEDS ORDERED: Amiodarone Premix 150 MG/100 ML BAG IVPB ONE (14:19)
[2020-04-27] MEDS ORDERED: *HR* LORazepam 2 MG/ML VIAL IVP ONE (14:33)
[2020-04-27] MEDS ORDERED: *HR* LORazepam 2 MG/ML VIAL ONE (14:36)
[2020-04-27] MEDS ORDERED: Amiodarone Premix 360 MG/200 ML BAG IVC ONE (14:45)
[2020-04-27] MEDS: Ringers Solution, Lactated 1,000 ML IVC SCH (15:29)
[2020-04-27] MEDS: cefTRIAXone 1,000 MG in Water for inj. (sterile) 10 ML IVP SCH (15:59)
[2020-04-27 16:28] LABS: Mean Corpuscular HGB Conc 27.4 g/dL (31.6-35.5)
[2020-04-27 16:29] LABS: Basophils % 0.3 %; Eosinophils % 0.2 %; Hematocrit 32.9 % (37.5-50.1); Immature Granulocytes % 0.3 % (0-4); Lymphocytes # 0.7 K/mcL (0.6-4.6); Lymphocytes % 6.8 %; Mean Corpuscular Hemoglobin 23.5 pg (28.0-33.3); Mean Corpuscular Volume 85.9 fL (83.0-100.0); Mean Platelet Volume 10.1 fL (9.4-12.4); Monocytes # 0.8 K/mcL (0.0-1.3); Monocytes % 8.1 %; Platelet Count 280 K/mcL (140-400); Red Blood Count 3.83 M/mcL (4.19-5.50); Red Cell Distribution Width 16.6 % (11.5-14.5); Segmented Neutrophils % 84.3 %; White Blood Count 9.8 K/mcL (4.3-11.1)
[2020-04-27 16:37] LABS: Neutrophils # 8.3 K/mcL (1.6-8.9)
[2020-04-27 16:42] LABS: Heparin anti-factor XA UFH < 0.04 IU/mL (0.30-0.70)
[2020-04-27 16:48] LABS: BUN/Creatinine Ratio 15 (6-26); Blood Urea Nitrogen 8 mg/dL (8-23); Calcium 8.7 mg/dL (8.6-10.3); Carbon Dioxide 35 mEq/L (23-29); Chloride 101 mEq/L (98-107); Glucose 136 mg/dL (70-105); Magnesium 1.9 mg/dL (1.6-2.6); Osmolality,Calculated 296 (280-300); Phosphorous 1.1 mg/dL (2.7-4.5); Potassium 3.2 mEq/L (3.5-5.1); Sodium 143 mEq/L (136-145); eGFR For African Americans > 60 (> 60); eGFR For Non-African Americans > 60 (> 60)
[2020-04-27] MEDS: Heparin 25,000UNIT/250ML 1/2NS 25,000 UNIT/250 ML IV.SOLN IVC SCH (16:48)
[2020-04-27 16:52] LABS: Troponin I 0.05 ng/mL (< 0.04)
[2020-04-27] MEDS ORDERED: Heparin 25,000UNIT/250ML 1/2NS 25,000 UNIT/250 ML IV.SOLN IVC SCH (17:00)
[2020-04-27 17:16] LABS: Activated Partial Thrombo Time 43.6 Seconds (26.0-36.0)
[2020-04-27 17:21] LABS: INR 2.6; Prothrombin Time 29.5 Seconds (9.4-12.1)
[2020-04-27] MEDS: lisinopriL 5 MG TABLET PO SCH (17:24)
[2020-04-27 17:50] LABS: Hypochromasia Present (Not Present); Platelet Estimate Normal (Normal)
[2020-04-27] MEDS ORDERED: Metoprolol XL (24 HR) Succ 25 MG TAB.ER.24H PO ONE ×2 (18:00)
[2020-04-27 18:04] LABS: ABG Base Excess 9 mEq/L (-2 to 3); ABG HCO3 37 mEq/L (21-27); ABG Oxygen Saturation 99 % (95-98); ABG PCO2 73 mmHg (35-45); ABG PH 7.32 pH Units (7.32-7.45); ABG PO2 168 mmHg (85-104); ABG TCO2 40 mEq/L (20-26)
[2020-04-27] MEDS: Lurasidone 20 MG TABLET PO SCH (18:31)
[2020-04-27] MEDS: Vancomycin 1,500 MG/265 ML IV.SOLN IVPB SCH ×2 (18:33→18:41)
[2020-04-27] MEDS ORDERED: Potassium Phosphate 44 MEQ in 0.9 % Sodium Chloride 250 ML IVPB ONE (19:57)
[2020-04-27] MEDS: Melatonin 3 MG TABLET PO SCH (21:04)
[2020-04-27] MEDS: Amiodarone Premix 360 MG/200 ML BAG IVC SCH (21:42)
[2020-04-28 04:21] LABS: Basophils % 0.5 %; Hematocrit 31.2 % (37.5-50.1); Immature Granulocytes % 0.3 % (0-4)
[2020-04-28 04:22] LABS: Basophils # 0.1 K/mcL (0.0-0.2); Eosinophils # 0.2 K/mcL (0.0-0.6); Hemoglobin 8.6 g/dL (12.9-16.9); Lymphocytes # 1.4 K/mcL (0.6-4.6); Lymphocytes % 12.8 %; Mean Corpuscular HGB Conc 27.6 g/dL (31.6-35.5); Mean Corpuscular Hemoglobin 23.4 pg (28.0-33.3); Mean Corpuscular Volume 84.8 fL (83.0-100.0); Mean Platelet Volume 10.3 fL (9.4-12.4); Monocytes # 1.6 K/mcL (0.0-1.3); Monocytes % 14.5 %; Neutrophils # 7.5 K/mcL (1.6-8.9); Platelet Count 261 K/mcL (140-400); Red Blood Count 3.68 M/mcL (4.19-5.50); Red Cell Distribution Width 17.3 % (11.5-14.5); Segmented Neutrophils % 69.9 %; White Blood Count 10.7 K/mcL (4.3-11.1)
[2020-04-28 04:54] LABS: BUN/Creatinine Ratio 14 (6-26); Blood Urea Nitrogen 8 mg/dL (8-23); Calcium 8.2 mg/dL (8.6-10.3); Carbon Dioxide 32 mEq/L (23-29); Chloride 105 mEq/L (98-107); Glucose 115 mg/dL (70-105); Magnesium 2.2 mg/dL (1.6-2.6); Osmolality,Calculated 297 (280-300); Phosphorous 4.9 mg/dL (2.7-4.5); Potassium 4.7 mEq/L (3.5-5.1); Sodium 144 mEq/L (136-145); eGFR For African Americans > 60 (> 60); eGFR For Non-African Americans > 60 (> 60)
[2020-04-28 05:15] LABS: Hypochromasia Present (Not Present)
[2020-04-28 05:16] LABS: Platelet Estimate Normal (Normal)
[2020-04-28] MEDS: Venlafaxine XR (24 HR) 75 MG CAP.ER.24H PO SCH (07:54)
[2020-04-28] MEDS: lisinopriL 5 MG TABLET PO SCH (07:54)
[2020-04-28] MEDS: Lactulose Oral Soln 20 GM/30 ML UDC PO SCH ×2 (07:55→20:49)
[2020-04-28] MEDS ORDERED: Metoprolol XL (24 HR) Succ 25 MG TAB.ER.24H PO SCH (09:00)
[2020-04-28] MEDS: Amiodarone Premix 360 MG/200 ML BAG IVC SCH (09:03)
[2020-04-28] MEDS: Heparin 25,000UNIT/250ML 1/2NS 25,000 UNIT/250 ML IV.SOLN IVC SCH (09:50)
[2020-04-28] MEDS ORDERED: diazePAM 5 MG TABLET PO SCH (12:00)
[2020-04-28] MEDS ORDERED: Piperacillin/Tazobactam 3.375 GM in 0.9 % Sodium Chloride Mini Bag 100 ML IVPB SCH (16:00)
[2020-04-28] MEDS ORDERED: Perflutren Lipid Microsphere 1.3 ML in 0.9 % Sodium Chloride 8.7 ML IVP PRN (16:40)
[2020-04-28] MEDS ORDERED: Naloxone 0.4 MG/ML INJ IVP PRN (16:40)
[2020-04-28] MEDS ORDERED: Heparin 25,000UNIT/250ML 1/2NS 25,000 UNIT/250 ML IV.SOLN IVC SCH (16:40)
[2020-04-28] MEDS ORDERED: *HR* Heparin 5,000 UNIT/ML VIAL IVP PRN ×2 (16:40)
[2020-04-28] MEDS ORDERED: Ondansetron 4 MG/2 ML VIAL IVP PRN (16:40)
[2020-04-28] MEDS ORDERED: Amiodarone Premix 360 MG/200 ML BAG IVC SCH (16:40)
[2020-04-28] MEDS: Piperacillin/Tazobactam 3.375 GM in 0.9 % Sodium Chloride Mini Bag 100 ML IVPB SCH (17:49)
[2020-04-28] MEDS: diazePAM 2 MG TABLET PO SCH (17:50)
[2020-04-28] MEDS: Lurasidone 20 MG TABLET PO SCH (17:51)
[2020-04-28] MEDS: Vancomycin 1,500 MG/265 ML IV.SOLN IVPB SCH (17:52)
[2020-04-28] MEDS ORDERED: diazePAM 2 MG TABLET PO SCH (18:00)
[2020-04-28] MEDS: Ringers Solution, Lactated 1,000 ML IVC SCH (19:18)
[2020-04-28] MEDS: Levalbuterol Neb 1.25 MG/3 ML IH PRN (19:49)
[2020-04-28] MEDS: Melatonin 3 MG TABLET PO SCH ×2 (20:50→23:49)
[2020-04-28] MEDS: DilTIAZem 50 MG in 0.9 % Sodium Chloride 40 ML IVC SCH (20:50)
[2020-04-29] MEDS: Piperacillin/Tazobactam 3.375 GM in 0.9 % Sodium Chloride Mini Bag 100 ML IVPB SCH ×3 (00:34→17:44)
[2020-04-29 01:30] LABS: Immature Granulocytes % 0.3 % (0-4); Red Cell Distribution Width 17.8 % (11.5-14.5)
[2020-04-29 01:32] LABS: Basophils # 0.1 K/mcL (0.0-0.2); Basophils % 0.5 %; Eosinophils # 0.2 K/mcL (0.0-0.6); Eosinophils % 1.6 %; Hematocrit 33.5 % (37.5-50.1); Lymphocytes # 1.3 K/mcL (0.6-4.6); Lymphocytes % 10.4 %; Mean Corpuscular HGB Conc 26.9 g/dL (31.6-35.5); Mean Corpuscular Hemoglobin 23.4 pg (28.0-33.3); Mean Corpuscular Volume 87.2 fL (83.0-100.0); Mean Platelet Volume 10.2 fL (9.4-12.4); Monocytes # 1.6 K/mcL (0.0-1.3); Monocytes % 12.9 %; Platelet Count 282 K/mcL (140-400); Red Blood Count 3.84 M/mcL (4.19-5.50); Segmented Neutrophils % 74.3 %; White Blood Count 12.1 K/mcL (4.3-11.1)
[2020-04-29] MEDS: Levalbuterol Neb 1.25 MG/3 ML IH PRN ×3 (01:59→15:47)
[2020-04-29 02:05] LABS: Anisocytosis 1+ (Not Present); Hypochromasia Present (Not Present); Platelet Estimate Normal (Normal); Poikilocytosis 1+ (Not Present)
[2020-04-29 02:15] LABS: BUN/Creatinine Ratio 13 (6-26); Blood Urea Nitrogen 7 mg/dL (8-23); Calcium 8.4 mg/dL (8.6-10.3); Carbon Dioxide 29 mEq/L (23-29); Chloride 104 mEq/L (98-107); Glucose 118 mg/dL (70-105); Osmolality,Calculated 293 (280-300); Phosphorous 2.9 mg/dL (2.7-4.5); Potassium 3.5 mEq/L (3.5-5.1); Sodium 142 mEq/L (136-145); eGFR For African Americans > 60 (> 60); eGFR For Non-African Americans > 60 (> 60)
[2020-04-29] MEDS: diazePAM 2 MG TABLET PO SCH ×2 (07:42→17:44)
[2020-04-29] MEDS: Venlafaxine XR (24 HR) 75 MG CAP.ER.24H PO SCH (07:42)
[2020-04-29] MEDS: Lactulose Oral Soln 20 GM/30 ML UDC PO SCH ×2 (07:43→21:09)
[2020-04-29] MEDS ORDERED: lisinopriL 5 MG TABLET PO SCH (09:00)
[2020-04-29] MEDS ORDERED: diazePAM 2 MG TABLET PO SCH (09:00)
[2020-04-29] MEDS: diazePAM 5 MG TABLET PO SCH (10:56)
[2020-04-29] MEDS: *HR* Amiodarone 200 MG TABLET PO SCH ×2 (10:57→21:05)
[2020-04-29] MEDS ORDERED: Metoprolol XL (24 HR) Succ 50 MG TAB.ER.24H PO SCH (11:00)
[2020-04-29] MEDS: Apixaban 5 MG TABLET PO SCH ×2 (12:31→21:05)
[2020-04-29 14:24] LABS: Bilirubin,Urine Negative (Negative); Blood,Urine Negative (Negative); Clarity,Urine Clear (Clear); Color,Urine Light-Yellow (Yellow); Glucose,Urine (UA) Normal (Normal); Ketones,Urine Negative (Negative); Leukocyte Esterase,Urine Large (Negative); Nitrite,Urine Negative (Negative); PH,Urine 5.5 pH Units (5.0-8.0); Protein,Urine Trace mg/dL (Neg-Trace); Specific Gravity,Urine 1.016 (1.010-1.025); Urobilinogen,Urine Normal (Normal)
[2020-04-29 14:28] LABS: Bacteria,Urine Few per hpf (None-Few); Budding Yeast,Urine Moderate per hpf (None Seen)
[2020-04-29] MEDS: Lurasidone 20 MG TABLET PO SCH (17:44)
[2020-04-29] MEDS: Vancomycin 1,500 MG/265 ML IV.SOLN IVPB SCH (17:45)
[2020-04-30] MEDS: Piperacillin/Tazobactam 3.375 GM in 0.9 % Sodium Chloride Mini Bag 100 ML IVPB SCH ×3 (01:40→17:14)
[2020-04-30 06:44] LABS: Basophils # 0.1 K/mcL (0.0-0.2); Basophils % 0.4 %; Eosinophils # 0.2 K/mcL (0.0-0.6); Eosinophils % 1.7 %; Hematocrit 35.2 % (37.5-50.1); Hemoglobin 9.4 g/dL (12.9-16.9); Immature Granulocytes % 0.3 % (0-4); Lymphocytes # 0.9 K/mcL (0.6-4.6); Lymphocytes % 7.2 %; Mean Corpuscular HGB Conc 26.7 g/dL (31.6-35.5); Mean Corpuscular Hemoglobin 23.6 pg (28.0-33.3); Mean Corpuscular Volume 88.4 fL (83.0-100.0); Mean Platelet Volume 9.6 fL (9.4-12.4); Monocytes # 1.3 K/mcL (0.0-1.3); Monocytes % 10.9 %; Neutrophils # 9.5 K/mcL (1.6-8.9); Platelet Count 272 K/mcL (140-400); Red Blood Count 3.98 M/mcL (4.19-5.50); Segmented Neutrophils % 79.5 %; White Blood Count 11.9 K/mcL (4.3-11.1)
[2020-04-30 06:59] LABS: Anisocytosis 1+ (Not Present); Hypochromasia Present (Not Present); Platelet Estimate Normal (Normal); Target Cells 1+ (Not Present)
[2020-04-30 07:02] LABS: BUN/Creatinine Ratio 7 (6-26); Blood Urea Nitrogen 6 mg/dL (8-23); Calcium 8.5 mg/dL (8.6-10.3); Carbon Dioxide 30 mEq/L (23-29); Chloride 104 mEq/L (98-107); Glucose 108 mg/dL (70-105); Magnesium 1.9 mg/dL (1.6-2.6); Osmolality,Calculated 292 (280-300); Phosphorous 3.3 mg/dL (2.7-4.5); Sodium 142 mEq/L (136-145); eGFR For African Americans > 60 (> 60); eGFR For Non-African Americans > 60 (> 60)
[2020-04-30] MEDS: diazePAM 2 MG TABLET PO SCH ×2 (08:45→17:14)
[2020-04-30 11:23] LABS: ABG Base Excess 6 mEq/L (-2 to 3); ABG HCO3 36 mEq/L (21-27); ABG Oxygen Saturation 97 % (95-98); ABG PCO2 89 mmHg (35-45); ABG PH 7.22 pH Units (7.32-7.45); ABG PO2 114 mmHg (85-104); ABG TCO2 39 mEq/L (20-26)
[2020-04-30] MEDS: Lactulose 200 GM, Sodium Chloride IRRigation 700 ML RC SCH ×3 (13:06→21:12)
[2020-04-30] MEDS ORDERED: Lactulose Oral Soln 20 GM/30 ML UDC PO ONE (13:22)
[2020-04-30] MEDS: Apixaban 5 MG TABLET PO SCH ×2 (13:34→21:18)
[2020-04-30] MEDS: Venlafaxine XR (24 HR) 75 MG CAP.ER.24H PO SCH (13:35)
[2020-04-30] MEDS: *HR* Amiodarone 200 MG TABLET PO SCH ×2 (13:35→21:18)
[2020-04-30] MEDS: Metoprolol XL (24 HR) Succ 50 MG TAB.ER.24H PO SCH (13:35)
[2020-04-30] MEDS: Lactulose Oral Soln 20 GM/30 ML UDC PO SCH ×2 (13:41→21:18)
[2020-04-30] MEDS: diazePAM 5 MG TABLET PO SCH (13:41)
[2020-04-30 13:51] LABS: ABG Base Excess 5 mEq/L (-2 to 3); ABG HCO3 37 mEq/L (21-27); ABG Oxygen Saturation 100 % (95-98); ABG PCO2 111 mmHg (35-45); ABG PH 7.13 pH Units (7.32-7.45); ABG PO2 237 mmHg (85-104); ABG TCO2 41 mEq/L (20-26)
[2020-04-30] MEDS ORDERED: Furosemide 40 MG/4 ML VIAL IVP ONE (15:15)
[2020-04-30 17:08] LABS: ABG Base Excess 6 mEq/L (-2 to 3); ABG HCO3 36 mEq/L (21-27); ABG Oxygen Saturation 95 % (95-98); ABG PCO2 84 mmHg (35-45); ABG PH 7.24 pH Units (7.32-7.45); ABG PO2 96 mmHg (85-104); ABG TCO2 38 mEq/L (20-26); Blood Gas Modality avaps; Blood Gas VT 500 cc
[2020-04-30] MEDS: Lurasidone 20 MG TABLET PO SCH (17:08)
[2020-04-30 17:19] LABS: Albumin/Globulin Ratio 0.8 (1.1-2.2); Bilirubin,Indirect 0.3 mg/dL (0.0-1.0); Bilirubin,Total 0.3 mg/dL (0.3-1.0); Globulin 3.6 g/dL (2.4-3.5); Total Protein 6.6 g/dL (6.4-8.9)
[2020-04-30] MEDS: Vancomycin 1,500 MG/265 ML IV.SOLN IVPB SCH (17:58)
[2020-04-30] MEDS: Melatonin 3 MG TABLET PO SCH (21:18)
[2020-05-01] MEDS: Piperacillin/Tazobactam 3.375 GM in 0.9 % Sodium Chloride Mini Bag 100 ML IVPB SCH ×2 (00:32→08:44)
[2020-05-01 06:37] LABS: VBG HCO3 32 mEq/L (21-27); VBG PCO2 57 mmHg (41-51); VBG PH 7.35 pH Units (7.32-7.42); VBG PO2 63 mmHg (25-50)
[2020-05-01 06:49] LABS: Red Cell Distribution Width 18.4 % (11.5-14.5)
[2020-05-01 06:50] LABS: Hematocrit 35.2 % (37.5-50.1); Hemoglobin 9.6 g/dL (12.9-16.9); Mean Corpuscular HGB Conc 27.3 g/dL (31.6-35.5); Mean Corpuscular Hemoglobin 23.1 pg (28.0-33.3); Mean Corpuscular Volume 84.8 fL (83.0-100.0); Mean Platelet Volume 10.1 fL (9.4-12.4); Platelet Count 266 K/mcL (140-400); Red Blood Count 4.15 M/mcL (4.19-5.50); White Blood Count 10.8 K/mcL (4.3-11.1)
[2020-05-01 07:09] LABS: BUN/Creatinine Ratio 7 (6-26); Blood Urea Nitrogen 7 mg/dL (8-23); Calcium 8.7 mg/dL (8.6-10.3); Carbon Dioxide 31 mEq/L (23-29); Chloride 104 mEq/L (98-107); Glucose 73 mg/dL (70-105); Magnesium 1.8 mg/dL (1.6-2.6); Osmolality,Calculated 293 (280-300); Phosphorous 2.8 mg/dL (2.7-4.5); Potassium 3.3 mEq/L (3.5-5.1); Sodium 143 mEq/L (136-145); eGFR For African Americans > 60 (> 60); eGFR For Non-African Americans > 60 (> 60)
[2020-05-01] MEDS: Metoprolol XL (24 HR) Succ 50 MG TAB.ER.24H PO SCH (08:45)
[2020-05-01] MEDS: *HR* Amiodarone 200 MG TABLET PO SCH ×2 (08:45→20:37)
[2020-05-01] MEDS: diazePAM 2 MG TABLET PO SCH ×2 (08:45→18:07)
[2020-05-01] MEDS: Apixaban 5 MG TABLET PO SCH ×2 (08:45→20:35)
[2020-05-01] MEDS: Venlafaxine XR (24 HR) 75 MG CAP.ER.24H PO SCH (08:46)
[2020-05-01 09:39] LABS: Anisocytosis 1+ (Not Present); Eosinophils # 0.2 K/mcL (0.0-0.6); Hypochromasia Present (Not Present); Lymphocytes # 1.1 K/mcL (0.6-4.6); Monocytes # 1.5 K/mcL (0.0-1.3); Platelet Estimate Normal (Normal)
[2020-05-01] MEDS: Lactulose 200 GM, Sodium Chloride IRRigation 700 ML RC SCH (09:43)
[2020-05-01] MEDS: Lactulose Oral Soln 20 GM/30 ML UDC PO SCH ×2 (09:45→20:38)
[2020-05-01] MEDS: diazePAM 5 MG TABLET PO SCH (11:25)
[2020-05-01] MEDS: Furosemide 40 MG/4 ML VIAL IVP SCH ×2 (11:25→20:39)
[2020-05-01] MEDS: Lurasidone 20 MG TABLET PO SCH (18:07)
[2020-05-01] MEDS: Melatonin 3 MG TABLET PO SCH (20:35)
[2020-05-02] MEDS: Lactulose 200 GM, Sodium Chloride IRRigation 700 ML RC SCH (00:04)
[2020-05-02] MEDS ORDERED: Isovue-370 500 ML BOTTLE IVP ONE (02:44)
[2020-05-02] MEDS ORDERED: *HR* LORazepam 2 MG/ML VIAL IVP ONE (03:36)
[2020-05-02 06:04] LABS: Eosinophils % 1.9 %; Hemoglobin 9.7 g/dL (12.9-16.9)
[2020-05-02 06:05] LABS: Basophils # 0.1 K/mcL (0.0-0.2); Basophils % 0.6 %; Eosinophils # 0.2 K/mcL (0.0-0.6); Hematocrit 35.4 % (37.5-50.1); Immature Granulocytes % 0.3 % (0-4); Lymphocytes # 1.2 K/mcL (0.6-4.6); Lymphocytes % 10.6 %; Mean Corpuscular HGB Conc 27.4 g/dL (31.6-35.5); Mean Corpuscular Hemoglobin 23.7 pg (28.0-33.3); Mean Corpuscular Volume 86.3 fL (83.0-100.0); Mean Platelet Volume 9.5 fL (9.4-12.4); Monocytes # 1.7 K/mcL (0.0-1.3); Monocytes % 14.9 %; Neutrophils # 8.3 K/mcL (1.6-8.9); Platelet Count 284 K/mcL (140-400); Red Cell Distribution Width 18.4 % (11.5-14.5); Segmented Neutrophils % 71.7 %; White Blood Count 11.5 K/mcL (4.3-11.1)
[2020-05-02 06:06] LABS: VBG HCO3 34 mEq/L (21-27); VBG PCO2 62 mmHg (41-51); VBG PH 7.34 pH Units (7.32-7.42); VBG PO2 151 mmHg (25-50)
[2020-05-02 06:23] LABS: BUN/Creatinine Ratio 8 (6-26); Blood Urea Nitrogen 7 mg/dL (8-23); Calcium 8.6 mg/dL (8.6-10.3); Carbon Dioxide 37 mEq/L (23-29); Chloride 101 mEq/L (98-107); Glucose 77 mg/dL (70-105); Osmolality,Calculated 293 (280-300); Potassium 3.3 mEq/L (3.5-5.1); Sodium 143 mEq/L (136-145); eGFR For African Americans > 60 (> 60); eGFR For Non-African Americans > 60 (> 60)
[2020-05-02 06:24] LABS: Magnesium 1.6 mg/dL (1.6-2.6); Phosphorous 3.5 mg/dL (2.7-4.5)
[2020-05-02 06:30] LABS: Anisocytosis 1+ (Not Present); Hypochromasia Present (Not Present); Platelet Estimate Normal (Normal)
[2020-05-02] MEDS: Metoprolol XL (24 HR) Succ 50 MG TAB.ER.24H PO SCH (08:56)
[2020-05-02] MEDS: *HR* Amiodarone 200 MG TABLET PO SCH ×2 (08:56→20:18)
[2020-05-02] MEDS: Venlafaxine XR (24 HR) 75 MG CAP.ER.24H PO SCH (08:56)
[2020-05-02] MEDS: Apixaban 5 MG TABLET PO SCH ×2 (08:56→20:18)
[2020-05-02] MEDS: Furosemide 40 MG/4 ML VIAL IVP SCH ×2 (08:57→20:20)
[2020-05-02] MEDS: Lactulose Oral Soln 20 GM/30 ML UDC PO SCH (08:57)
[2020-05-02] MEDS ORDERED: lisinopriL 5 MG TABLET PO SCH (09:00)
[2020-05-02] MEDS: diazePAM 2 MG TABLET PO SCH (09:00)
[2020-05-02 10:00] LABS: ABG Base Excess 11 mEq/L (-2 to 3); ABG HCO3 41 mEq/L (21-27); ABG Oxygen Saturation 97 % (95-98); ABG PCO2 86 mmHg (35-45); ABG PH 7.29 pH Units (7.32-7.45); ABG PO2 105 mmHg (85-104); ABG TCO2 44 mEq/L (20-26); Blood Gas Modality avaps; Blood Gas VT 500 cc
[2020-05-02] MEDS ORDERED: *HR* Metoprolol 5 MG/5 ML VIAL IVP ONE (10:11)
[2020-05-02] MEDS ORDERED: Water for inj. (sterile) 10 ML ONE (10:31)
[2020-05-02] MEDS ORDERED: *HR* Labetalol 20 MG/4 ML SYRINGE IVP ONE (12:00)
[2020-05-02] MEDS: Dexmedetomidine HCl 400 MCG/100 ML MLS IVC SCH (13:13)
[2020-05-02] MEDS ORDERED: 0.9 % Sodium Chloride 250 ML IVC ONE (14:08)
[2020-05-02] MEDS ORDERED: 0.9 % Sodium Chloride 1,000 ML ONE (14:08)
[2020-05-02 15:19] LABS: ABG Base Excess 11 mEq/L (-2 to 3); ABG HCO3 40 mEq/L (21-27); ABG Oxygen Saturation 97 % (95-98); ABG PCO2 85 mmHg (35-45); ABG PH 7.28 pH Units (7.32-7.45); ABG PO2 108 mmHg (85-104); ABG TCO2 43 mEq/L (20-26); Blood Gas Modality NIV; Blood Gas VT 500 cc
[2020-05-02] MEDS: diazePAM 5 MG TABLET PO SCH (16:11)
[2020-05-02] MEDS: Lurasidone 20 MG TABLET PO SCH (18:12)
[2020-05-02] MEDS: Melatonin 3 MG TABLET PO SCH (20:18)
[2020-05-02 21:08] LABS: VBG HCO3 32 mEq/L (21-27); VBG PCO2 71 mmHg (41-51); VBG PH 7.27 pH Units (7.32-7.42); VBG PO2 143 mmHg (25-50)
[2020-05-03 03:46] LABS: Hemoglobin 9.1 g/dL (12.9-16.9); Immature Granulocytes % 0.3 % (0-4); Lymphocytes % 9.7 %
[2020-05-03 03:47] LABS: Basophils % 0.4 %; Eosinophils # 0.2 K/mcL (0.0-0.6); Eosinophils % 1.9 %; Hematocrit 33.1 % (37.5-50.1); Lymphocytes # 0.9 K/mcL (0.6-4.6); Mean Corpuscular HGB Conc 27.5 g/dL (31.6-35.5); Mean Corpuscular Hemoglobin 23.5 pg (28.0-33.3); Mean Corpuscular Volume 85.3 fL (83.0-100.0); Mean Platelet Volume 9.7 fL (9.4-12.4); Monocytes # 1.2 K/mcL (0.0-1.3); Monocytes % 12.4 %; Neutrophils # 7.1 K/mcL (1.6-8.9); Platelet Count 279 K/mcL (140-400); Red Blood Count 3.88 M/mcL (4.19-5.50); Red Cell Distribution Width 18.6 % (11.5-14.5); Segmented Neutrophils % 75.3 %; White Blood Count 9.4 K/mcL (4.3-11.1)
[2020-05-03 04:02] LABS: Magnesium 1.5 mg/dL (1.6-2.6); Phosphorous 2.6 mg/dL (2.7-4.5)
[2020-05-03 04:02] LABS: VBG HCO3 37 mEq/L (21-27); VBG PCO2 74 mmHg (41-51); VBG PH 7.31 pH Units (7.32-7.42); VBG PO2 31 mmHg (25-50)
[2020-05-03 04:03] LABS: BUN/Creatinine Ratio 8 (6-26); Blood Urea Nitrogen 8 mg/dL (8-23); Calcium 8.8 mg/dL (8.6-10.3); Carbon Dioxide 38 mEq/L (23-29); Chloride 101 mEq/L (98-107); Glucose 84 mg/dL (70-105); Osmolality,Calculated 302 (280-300); Potassium 3.9 mEq/L (3.5-5.1); Sodium 147 mEq/L (136-145); eGFR For African Americans > 60 (> 60); eGFR For Non-African Americans > 60 (> 60)
[2020-05-03 04:12] LABS: Hypochromasia Present (Not Present); Platelet Estimate Normal (Normal); Poikilocytosis 1+ (Not Present); Target Cells 1+ (Not Present)
[2020-05-03] MEDS: Dexmedetomidine HCl 400 MCG/100 ML MLS IVC SCH (06:54)
[2020-05-03] MEDS: *HR* Amiodarone 200 MG TABLET PO SCH ×2 (08:06→20:12)
[2020-05-03] MEDS: Apixaban 5 MG TABLET PO SCH ×2 (08:06→20:12)
[2020-05-03] MEDS: Venlafaxine XR (24 HR) 75 MG CAP.ER.24H PO SCH (08:06)
[2020-05-03] MEDS: Furosemide 40 MG/4 ML VIAL IVP SCH (08:08)
[2020-05-03 10:04] LABS: BUN/Creatinine Ratio 8 (6-26); Blood Urea Nitrogen 8 mg/dL (8-23); Calcium 8.9 mg/dL (8.6-10.3); Carbon Dioxide 38 mEq/L (23-29); Chloride 101 mEq/L (98-107); Glucose 86 mg/dL (70-105); Osmolality,Calculated 296 (280-300); Potassium 4.2 mEq/L (3.5-5.1); Sodium 144 mEq/L (136-145); eGFR For African Americans > 60 (> 60); eGFR For Non-African Americans > 60 (> 60)
[2020-05-03] MEDS: Lurasidone 20 MG TABLET PO SCH (17:07)
[2020-05-03] MEDS: Melatonin 3 MG TABLET PO SCH (20:12)
[2020-05-04 01:10] LABS: Basophils % 0.6 %; Immature Granulocytes % 0.2 % (0-4); Segmented Neutrophils % 79.1 %
[2020-05-04 01:11] LABS: Basophils # 0.1 K/mcL (0.0-0.2); Eosinophils # 0.2 K/mcL (0.0-0.6); Eosinophils % 1.6 %; Hematocrit 36.8 % (37.5-50.1); Hemoglobin 9.7 g/dL (12.9-16.9); Lymphocytes # 0.8 K/mcL (0.6-4.6); Lymphocytes % 8.2 %; Mean Corpuscular HGB Conc 26.4 g/dL (31.6-35.5); Mean Corpuscular Hemoglobin 22.9 pg (28.0-33.3); Mean Platelet Volume 9.2 fL (9.4-12.4); Monocytes # 1.1 K/mcL (0.0-1.3); Monocytes % 10.3 %; Neutrophils # 8.1 K/mcL (1.6-8.9); Platelet Count 320 K/mcL (140-400); Red Blood Count 4.23 M/mcL (4.19-5.50); Red Cell Distribution Width 18.9 % (11.5-14.5); White Blood Count 10.2 K/mcL (4.3-11.1)
[2020-05-04 01:12] LABS: VBG HCO3 32 mEq/L (21-27); VBG PCO2 69 mmHg (41-51); VBG PH 7.28 pH Units (7.32-7.42); VBG PO2 42 mmHg (25-50)
[2020-05-04 01:28] LABS: Platelet Estimate Normal (Normal)
[2020-05-04 01:29] LABS: Anisocytosis 1+ (Not Present); BUN/Creatinine Ratio 10 (6-26); Blood Urea Nitrogen 10 mg/dL (8-23); Calcium 8.9 mg/dL (8.6-10.3); Carbon Dioxide 35 mEq/L (23-29); Chloride 98 mEq/L (98-107); Glucose 69 mg/dL (70-105); Hypochromasia Present (Not Present); Magnesium 2.3 mg/dL (1.6-2.6); Osmolality,Calculated 293 (280-300); Phosphorous 3.8 mg/dL (2.7-4.5); Sodium 143 mEq/L (136-145); eGFR For African Americans > 60 (> 60); eGFR For Non-African Americans > 60 (> 60)
[2020-05-04] MEDS: Dexmedetomidine HCl 400 MCG/100 ML MLS IVC SCH (01:42)
[2020-05-04] MEDS: Venlafaxine XR (24 HR) 75 MG CAP.ER.24H PO SCH (08:53)
[2020-05-04] MEDS: Apixaban 5 MG TABLET PO SCH ×2 (08:53→19:55)
[2020-05-04] MEDS: *HR* Amiodarone 200 MG TABLET PO SCH ×2 (08:54→19:55)
[2020-05-04] MEDS: Lurasidone 20 MG TABLET PO SCH (17:25)
[2020-05-04] MEDS: Melatonin 3 MG TABLET PO SCH (19:55)
[2020-05-04] MEDS ORDERED: *HR* Metoprolol 5 MG/5 ML VIAL IVP ONE ×2 (19:59→20:01)
[2020-05-05 00:48] LABS: Basophils # 0.1 K/mcL (0.0-0.2); Basophils % 0.6 %; Eosinophils # 0.3 K/mcL (0.0-0.6); Eosinophils % 3.1 %; Hematocrit 37.1 % (37.5-50.1); Immature Granulocytes % 0.1 % (0-4); Lymphocytes # 0.7 K/mcL (0.6-4.6); Lymphocytes % 6.4 %; Mean Corpuscular Hemoglobin 23.9 pg (28.0-33.3); Mean Corpuscular Volume 88.5 fL (83.0-100.0); Mean Platelet Volume 9.4 fL (9.4-12.4); Monocytes # 1.1 K/mcL (0.0-1.3); Monocytes % 10.2 %; Neutrophils # 8.6 K/mcL (1.6-8.9); Platelet Count 313 K/mcL (140-400); Red Blood Count 4.19 M/mcL (4.19-5.50); Red Cell Distribution Width 18.8 % (11.5-14.5); Segmented Neutrophils % 79.6 %; White Blood Count 10.8 K/mcL (4.3-11.1)
[2020-05-05 01:05] LABS: BUN/Creatinine Ratio 11 (6-26); Blood Urea Nitrogen 11 mg/dL (8-23); Carbon Dioxide 38 mEq/L (23-29); Chloride 100 mEq/L (98-107); Glucose 75 mg/dL (70-105); Magnesium 2.1 mg/dL (1.6-2.6); Osmolality,Calculated 300 (280-300); Potassium 3.9 mEq/L (3.5-5.1); Sodium 146 mEq/L (136-145); eGFR For African Americans > 60 (> 60); eGFR For Non-African Americans > 60 (> 60)
[2020-05-05 01:08] LABS: Anisocytosis 1+ (Not Present); Hypochromasia Present (Not Present); Platelet Estimate Normal (Normal)
[2020-05-05] MEDS: Dexmedetomidine HCl 400 MCG/100 ML MLS IVC SCH (04:02)
[2020-05-05] MEDS: Metoprolol XL (24 HR) Succ 25 MG TAB.ER.24H PO SCH (08:06)
[2020-05-05] MEDS: *HR* Amiodarone 200 MG TABLET PO SCH ×3 (08:06→20:33)
[2020-05-05] MEDS: Venlafaxine XR (24 HR) 75 MG CAP.ER.24H PO SCH (08:06)
[2020-05-05] MEDS: Apixaban 5 MG TABLET PO SCH ×3 (08:06→20:34)
[2020-05-05] MEDS ORDERED: Furosemide 40 MG TABLET PO SCH (09:00)
[2020-05-05] MEDS: Lurasidone 20 MG TABLET PO SCH (17:09)
[2020-05-05] MEDS: diazePAM 2 MG TABLET PO SCH ×2 (20:09→20:28)
[2020-05-05] MEDS: Melatonin 3 MG TABLET PO SCH ×2 (20:09→20:32)
[2020-05-06 01:59] LABS: Basophils # 0.1 K/mcL (0.0-0.2); Basophils % 0.6 %; Eosinophils # 0.7 K/mcL (0.0-0.6); Eosinophils % 5.3 %; Hemoglobin 9.3 g/dL (12.9-16.9); Immature Granulocytes % 0.3 % (0-4); Lymphocytes # 0.9 K/mcL (0.6-4.6); Lymphocytes % 6.9 %; Mean Corpuscular HGB Conc 26.6 g/dL (31.6-35.5); Mean Corpuscular Hemoglobin 23.2 pg (28.0-33.3); Mean Corpuscular Volume 87.3 fL (83.0-100.0); Mean Platelet Volume 9.4 fL (9.4-12.4); Monocytes # 1.5 K/mcL (0.0-1.3); Monocytes % 10.9 %; Neutrophils # 10.2 K/mcL (1.6-8.9); Platelet Count 298 K/mcL (140-400); Red Blood Count 4.01 M/mcL (4.19-5.50); Red Cell Distribution Width 18.6 % (11.5-14.5); White Blood Count 13.4 K/mcL (4.3-11.1)
[2020-05-06 02:16] LABS: Anisocytosis 1+ (Not Present); Platelet Estimate Normal (Normal); Poikilocytosis 1+ (Not Present); Target Cells 1+ (Not Present)
[2020-05-06 02:18] LABS: BUN/Creatinine Ratio 12 (6-26); Blood Urea Nitrogen 10 mg/dL (8-23); Calcium 9.2 mg/dL (8.6-10.3); Carbon Dioxide 38 mEq/L (23-29); Chloride 98 mEq/L (98-107); Glucose 124 mg/dL (70-105); Magnesium 2.1 mg/dL (1.6-2.6); Osmolality,Calculated 292 (280-300); Potassium 3.7 mEq/L (3.5-5.1); Sodium 141 mEq/L (136-145); eGFR For African Americans > 60 (> 60); eGFR For Non-African Americans > 60 (> 60)
[2020-05-06] MEDS: *HR* Amiodarone 200 MG TABLET PO SCH ×2 (08:46→08:57)
[2020-05-06] MEDS: Metoprolol XL (24 HR) Succ 25 MG TAB.ER.24H PO SCH ×2 (08:46→08:58)
[2020-05-06] MEDS: Apixaban 5 MG TABLET PO SCH ×2 (08:46→08:57)
[2020-05-06] MEDS: diazePAM 2 MG TABLET PO SCH ×2 (08:46→08:58)
[2020-05-06] MEDS: Venlafaxine XR (24 HR) 75 MG CAP.ER.24H PO SCH ×2 (08:46→08:57)
[2020-05-06] MEDS ORDERED: *HR* LORazepam 2 MG/ML VIAL IVP PRN (09:26)
[2020-05-06 11:00] LABS: Influenza A PCR Negative (Negative); Influenza B PCR Negative (Negative); Resp. Syncytial Virus PCR Negative (Negative)
[2020-05-06 12:33] VITALS: BP 188/96
[2020-05-06 12:41] LABS: SARS-CoV-2 by PCR (In House) Negative (Negative)
[2020-05-07 13:27] LABS: VBG HCO3 36 mEq/L (21-27); VBG PCO2 85 mmHg (41-51); VBG PH 7.24 pH Units (7.32-7.42); VBG PO2 52 mmHg (25-50)
[2020-05-07 13:27] LABS: VBG HCO3 39 mEq/L (21-27); VBG PCO2 77 mmHg (41-51); VBG PH 7.31 pH Units (7.32-7.42); VBG PO2 182 mmHg (25-50)
== END 2020-05-06 14:04 | disposition hospice, inpatient (51) | DRG 291 ==
LOC: EMEROOARM 14:39 → 2NENU 14:39 → SUATTDRO 19:20 → 2NENU 20:04 → SUATTDRO 04-22 18:11 → ICNU 04-27 15:07 → 2NNU 04-28 22:14 → 2NENU 04-29 19:37 → ICNU 04-30 16:42 → 2NENU 05-01 17:49 → 2NNU 05-02 13:08
PROVIDERS: ADMIT Internal Medicine; ATTEND Internal Medicine